=== PATIENT | female | born 1995 | race Caucasian/White ===

== ENCOUNTER → 2016-11-06 22:25 | Observation (INO) ==
--- NOTE | 2016-11-06 17:28 | OB/GYN History & Physical ---
Date of Encounter: 11/06/16 Time of Encounter: 17:15 Assessment and Plan (1) Tachycardia Current visit: No Status: Acute - 1 L of LR fluid bolus. -EKG -CBC CMP History of Present Illness HPI: Ms. Landin is a 20 year old female , at 34 weeks and 2 days, who has a gestational consultation of cholestasis. She was being seen at her OBs office and sent into the labor and delivery for evaluation due to near syncopal episode and hypotension. Patient states that she has had several episodes throughout this where she feels like her heart is racing and that she is going to pass out. She has had 2 episodes of this today. She states she feels like she is going to pass out at this time. She is hypotensive currently at 89 systolic. She states she has been worked up by cardiology including a Holter monitor with no events noted. She states she did not have any feelings like her heart was racing or feelings like she was going to pass out while she is wearing the monitor. She does complain of palpitations feelings of syncope and her vision going white during these events. Past Med Surg Social Fam HX - Past Medical History Medical history: DVT Psychiatric history: no psych history - Social History Smoking Status: Never smoker Smokeless Tobacco Status: No Alcohol use: none Drug use: none - Family History Maternal Grandfather Adopted: No Family Member Ethnicity: Non- Living Status: Still Living Hx Family Cardiac Disorders: Yes (CHF, a-fib, pacemaker, enlarged heart) Hx Family Respiratory Disorders: Yes (COPD) Hx Family Cancer: No Hx Family GI Disorders: No Hx Family Endocrine Disorder: No Hx Family Neuromuscular Disorders: No Hx Family Neurologic Disorders: No Hx Family HEENT Disorders: No Hx Family Autoimmune Disorders: No Obstetrical History - Pregnancies : 1 Para: 0 - History/Complications History/Complications: Cholestasis. Increased liver enzymes. Episodes of tachycardia and near syncope. Medications and Allergies Gummies 08/31/16 [History] Terconazole [Terazol 7] 45 gm VG DAILY #7 cream.appl 08/31/16 [Rx] Nitrofurantoin (BID) [Macrobid] 100 mg PO BID #10 capsule 09/16/16 [Rx] Allergies promethazine [From Phenergan] Allergy (Verified 09/16/16 08:27) Hallucinating Review of System OB All systems PM: reviewed and no additional remarkable complaints except as stated - Constitutional Constitutional ROS IM: other (Feeling like she is going to pass out. Vision going white during these times.), no anorexia, no chills, no fatigue, no fever(s ), no lethargy, no weakness, no weight gain, no weight loss - Nose, mouth, and throat Nose, mouth and throat: abnormal hearing (During the events of her heart racing. ), dizziness (She describes as feeling like she is going to pass out. Not the world spinning.), no epistaxis, no headache(s), no hoarseness, no nasal congestion, no neck pain, no sinus pressure, no sore throat, no throat swelling , no tongue swelling, no vertigo - Cardiovascular Cardiovascular: diaphoresis (During the event that she feels like she is going to pass out), lightheadedness (When her heart is racing), palpitations, rapid heart rate, no chest pain, no chest pain at rest, no chest pain with activity, no dyspnea, no dyspnea on exertion, no edema, no pedal edema, no syncope - Respiratory Respiratory: no cough, no dyspnea, no hemoptysis, no dyspnea on exertion, no wheezing, no chest congestion, no pain with cough - Gastrointestinal Gastrointestinal: no abdominal pain, no change in bowel habits, no constipation , no cramping, no diarrhea, no hematemesis, no hematochezia, no loose stools, no melena, no nausea, no vomiting - Genitourinary Genitourinary: amenorrhea, no breast pain, no breast skin changes, no change in urinary stream, no difficulty voiding, no hot flashes, no light periods, no pelvic pain, no post void dribbling, no urinary frequency, no urinary hesitancy , no urinary incontinence - Menstruation Menstruation: amenorrhea - Integumentary Integumentary: no rash - Neurological Nerological: dizziness, no confusion, no memory loss, no numbness, no paresthesias, no syncope Exam - Constitutional Constitutional: well developed, well nourished, mild distress - HEENT HEENT: Pallor, EOMI, PERRL, Normocephaly, Mucus Membranes Moist - Neck Neck exam: full ROM, normal inspection, supple, trachea midline - Lungs Respiratory exam: CTAB - Cardiovascular Cardiovascular exam: tachycardia - Abdomen Abdomen: Present: bowel sounds normal, gravid, non tender - Extremities Extremities exam: full ROM, normal capillary refill, normal inspection, radial pulses palpable and symetrical Deep Tendon Reflex Grade: 2+ Normal Results All other labs normal. - VTE Reasons for not Prescribing Prophylaxis: Treatment not Indicated - Low risk for VTE
[2016-11-06] MEDS: Ringers Solution, Lactated 1,000 ML IVC STA ×2 (17:46→18:33)
[2016-11-06 18:05] LABS: Alanine Aminotransferase 194 Units/L (0-55); Albumin 2.4 g/dL (3.5-5.0); Albumin/Globulin Ratio 0.6 (1.1-2.2); Alkaline Phosphatase 135 Units/L (38-126); Aspartate Amino Transferase 82 Units/L (5-34); BUN/Creatinine Ratio 10 (6-26); Bilirubin,Total 0.9 mg/dL (0.2-1.2); Blood Urea Nitrogen 7 mg/dL (7-20); Carbon Dioxide 16 mEq/L (19-29); Chloride 109 mEq/L (98-109); Globulin 4.2 g/dL (2.4-3.5); Glucose 91 mg/dL (70-99); Osmolality,Calculated 284 (280-300); Potassium 3.8 mEq/L (3.5-4.5); Sodium 138 mEq/L (136-145); Total Protein 6.6 g/dL (6.0-8.3); eGFR For African Americans > 60 (> 60); eGFR For Non-African Americans > 60 (> 60)
[2016-11-06 18:46] LABS: Basophils % 0.2 %; Eosinophils % 0.3 %; Hematocrit 31.9 % (35.3-44.9); Hemoglobin 10.8 g/dL (11.5-15.4); Immature Granulocytes % 0.5 % (0-4); Lymphocytes # 1.6 K/mcL (0.6-4.6); Lymphocytes % 13.9 %; Mean Corpuscular HGB Conc 33.9 g/dL (31.6-35.5); Mean Corpuscular Hemoglobin 29.8 pg (28.0-33.3); Mean Corpuscular Volume 87.9 fL (83.0-100.0); Mean Platelet Volume 9.9 fL (9.4-12.4); Monocytes # 0.5 K/mcL (0.0-1.3); Monocytes % 4.8 %; Neutrophils # 9.1 K/mcL (1.6-8.9); Platelet Count 361 K/mcL (140-400); Red Blood Count 3.63 M/mcL (3.82-4.97); Red Cell Distribution Width 12.4 % (11.5-14.5); Segmented Neutrophils % 80.3 %
--- NOTE | 2016-11-06 18:56 | Internal Med History&Physical ---
Date of Encounter: 11/06/16 Time of Encounter: 18:15 Internal Medicine - H&P: HPI Chief complaint: hypotension, tachycardia Admitted From: Home Plans for Post Hospital Care: Home History of present illness: Ms. Landin is a 20 year old female Past Med Surg Social Fam HX - Past Medical History Medical history: DVT Psychiatric history: no psych history - Social History Smoking Status: Never smoker Smokeless Tobacco Status: No Alcohol use: none Drug use: none - Family History Maternal Grandfather Adopted: No Family Member Ethnicity: Non- Living Status: Still Living Hx Family Cardiac Disorders: Yes Hx Family Respiratory Disorders: Yes (COPD) Hx Family Cancer: No Hx Family GI Disorders: No Hx Family Endocrine Disorder: No Hx Family Neuromuscular Disorders: No Hx Family Neurologic Disorders: No Hx Family HEENT Disorders: No Hx Family Autoimmune Disorders: No Internal Medicine - H&P: Meds Gummies 08/31/16 [History] Ursodiol [Ursodiol] 300 mg PO TID 11/06/16 [History] Allergies promethazine [From Phenergan] Allergy (Verified 09/16/16 08:27) Hallucinating All Systems PM: A 10-system review of systems was performed and is negative for pertinent findings except as documented above in the HPI. Internal Med - H&P Results - Labs CBC & Chem 7: 11/06/16 18:36 11/06/16 17:39 Labs: Short CBC 11/06/16 Range/Units 18:36 WBC 11.3 H (4.3-11.1) K/mcL Hgb 10.8 L (11.5-15.4) g/dL Hct 31.9 L (35.3-44.9) % Plt Count 361 (140-400) K/mcL Neutrophils # 9.1 H (1.6-8.9) K/mcL BMP 11/06/16 17:39 Sodium 138 Potassium 3.8 Chloride 109 Carbon Dioxide 16 L BUN 7 Creatinine 0.67 Glucose 91 Calcium 9.0 Liver Function 11/06/16 Range/Units 17:39 Total Bilirubin 0.9 (0.2-1.2) mg/dL AST 82 H (5-34) Units/L ALT 194 H (0-55) Units/L Alkaline Phosphatase 135 H (38-126) Units/L Albumin 2.4 L (3.5-5.0) g/dL - VTE Reasons for not Prescribing Prophylaxis: Treatment not Indicated - Low risk for VTE
--- NOTE | 2016-11-06 19:01 | Internal Medicine Consult Note ---
<Ger,Amy Chris - Last Filed: 11/06/16 18:56> Date of Encounter: 11/06/16 Time of Encounter: 18:15 Internal Medicine - CN: HPI - Data of Consult Consult date: 11/06/16 Requesting Physician: Lew Haider MD - Consult Narrative History of present illness: Ms. Landin is a 20 year old female , 32 weeks/4 days with 2 month history of presyncope.Pt was at OB office today during episode and was sent to L & D for evaluation. Hypotensive on arrival, 89/46. Pressure 118/70s after 1 liter LR. Pt alert, awake, denies cp, but does report dizziness and "cold sweats ". - Constitutional Constitutional: no chills, no fever(s), no weakness - EENT Eyes: no change in vision - Cardiovascular Cardiovascular ROS IM: diaphoresis, edema, palpitations, no chest pain, no syncope - Respiratory Respiratory: no cough, no dyspnea, no wheezing, no chest congestion - Musculoskeletal Musculoskeletal ROS IM: muscle weakness Additional comments: Pt reports intermittent arm heaviness/weakness with post neck pain x 2 mos. Past Med Surg Social Fam HX - Past Medical History Medical history: DVT Psychiatric history: no psych history - Social History Smoking Status: Never smoker Smokeless Tobacco Status: No Alcohol use: none Drug use: none - Family History Maternal Grandfather Adopted: No Family Member Ethnicity: Non- Living Status: Still Living Hx Family Cardiac Disorders: Yes Hx Family Respiratory Disorders: Yes (COPD) Hx Family Cancer: No Hx Family GI Disorders: No Hx Family Endocrine Disorder: No Hx Family Neuromuscular Disorders: No Hx Family Neurologic Disorders: No Hx Family HEENT Disorders: No Hx Family Autoimmune Disorders: No Internal Medicine - CN: Meds Gummies 2 tab PO QPM 08/31/16 [History] Ursodiol [Ursodiol] 300 mg PO TID 11/06/16 [History] Allergies promethazine [From Phenergan] Allergy (Verified 09/16/16 08:27) Hallucinating Internal Medicine - CN: Exam - Constitutional General appearance IM: Present: A&O X 3, pleasant, no acute distress - ENT ENT exam: Present: mucous membranes moist - Neck Neck exam general surgery: Absent: tenderness, nuchal rigidity - Respiratory Respiratory exam: Present: CTAB. Absent: chest wall tenderness, decreased breath sounds, respiratory distress, rhonchi, wheezes - Cardiovascular Cardiovascular exam IM: Present: RRR, +S1, +S2. Absent: diastolic murmur, JVD, systolic murmur - Extremities Exam Extremities exam IM: Present: full ROM, normal capillary refill, normal inspection, warm. Absent: calf tenderness, tenderness Additional comments: Garrett pedal pulses +2. No pedal or pretibial edema. - Neurological Exam Neurological exam: Present: alert, oriented X3 - Skin Skin exam IM: Present: dry, normal color, warm Internal Medicine - CN: Reslt - Labs CBC & Chem 7: 11/06/16 18:36 11/06/16 17:39 Labs: Short CBC 11/06/16 Range/Units 18:36 WBC 11.3 H (4.3-11.1) K/mcL Hgb 10.8 L (11.5-15.4) g/dL Hct 31.9 L (35.3-44.9) % Plt Count 361 (140-400) K/mcL Neutrophils # 9.1 H (1.6-8.9) K/mcL BMP 11/06/16 17:39 Sodium 138 Potassium 3.8 Chloride 109 Carbon Dioxide 16 L BUN 7 Creatinine 0.67 Glucose 91 Calcium 9.0 Liver Function 11/06/16 Range/Units 17:39 Total Bilirubin 0.9 (0.2-1.2) mg/dL AST 82 H (5-34) Units/L ALT 194 H (0-55) Units/L Alkaline Phosphatase 135 H (38-126) Units/L Albumin 2.4 L (3.5-5.0) g/dL - EKG Data -: EKG Interpreted by Myself EKG shows normal: sinus rhythm Rate: normal - EKG Data Interpretation IM: normal EKG - Assessment and Plan (1) Pre-syncope Current Visit: Yes Status: Acute Assessment and plan: Pt in L & D room, monitoring. Pts pulse remains wNL during exam. Orthostatic vs done, neg for changes and pt not dizzy with position change. Pt received 2L LR per OB orders and states that she was feeling better. Presyncope is most likely from volume and demand changes during , but further testing will be done to determine if there is another cause. EKG done in OB, Ventricular rate 99, T wave inversion in lead III, No ST changes LR at 100ml/hr Blood cultures, urine cultures, CBC, Chemistry, BNP, UA/culture Monitor labs (2) Tachycardia Current Visit: Yes Status: Acute Assessment and plan: Plan as above Consult Discharge Plan - Plan Referrals: Rajni Mcgraw SENIOR [employer]2EE DEVELOPER [Primary Care Provider] - <Cosme Ca - Last Filed: 11/06/16 21:41> Date of Encounter: 11/06/16 - Attending Attestation I have independently seen and examined this patient and discussed plan of care with patient and family at bedside 20 Y/O Primigravida, admitted for management of presyncope Medicine is consulted for evaluation for presyncope, tachycardia and hypotension Patient endorsed periods of sudden onset dizziness, self -resolving since early in her 3rd trimester. She has had tachycardia throughout this that has been worked up by cardiology. Holter monitoring said to be sinus tachycardia and ECHO was unremarkable. This has also been complicated by cholestasis She has a hx of upper extremity DVT but denies current calf pain SOB, Chest pain , abdominal pain or symptoms Physical Exam is unremarkable Orthostatic vitals were normal, however patient had already received IVF at time of visit. Labs were ordered including UA and urine culture, chem, BNP, troponins, LFT, CBC. Apart from a UTI, Labs are essentially unremarkable, her LFTs have improved. [employer]ACH[employer] T[employer]ER WNL, Troponin WNL. EKG done at bedside revealed NSR, TWI in lead III (same as in previous EKG) Assessment/plan: Presyncope from hypotension which is most likely secondary to physiologic changes of . Patient does have a UTI but has no fever or leukocytosis or leukopenia to meet a criteria for sepsis. Recommend to give IV antibiotics to treat UTI, encourage liberal fluid intake and patient may be discharged if her blood pressure remains normal after IVF has been discontinued. Elevated D-dimers are normal in , I do not envisage that patient has a PE, if there is suspicion for PE, you may obtain a doppler of lower extremities , and manage appropriately Thank you for your consult. 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 Internal Medicine - CN: HPI - Data of Consult Requesting Physician: Lew Haider MD - Consult Narrative History of present illness: Ms. Landin is a 20 year old female Internal Medicine - CN: Exam - Constitutional Vitals: Temp Pulse Resp BP Pulse Ox 97.6 F 98 20 126/65 99 11/06/16 17:50 11/06/16 19:18 11/06/16 17:50 11/06/16 19:18 11/06/16 19:18 Internal Medicine - CN: Reslt - Labs CBC & Chem 7: 11/06/16 18:36 11/06/16 17:39 Labs: Short CBC 11/06/16 Range/Units 18:36 WBC 11.3 H (4.3-11.1) K/mcL Hgb 10.8 L (11.5-15.4) g/dL Hct 31.9 L (35.3-44.9) % Plt Count 361 (140-400) K/mcL Neutrophils # 9.1 H (1.6-8.9) K/mcL BMP 11/06/16 17:39 Sodium 138 Potassium 3.8 Chloride 109 Carbon Dioxide 16 L BUN 7 Creatinine 0.67 Glucose 91 Calcium 9.0 Cardiac Enzymes 11/06/16 Range/Units 18:36 Troponin I 0.01 (0-0.03) ng/mL Liver Function 11/06/16 Range/Units 17:39 Total Bilirubin 0.9 (0.2-1.2) mg/dL AST 82 H (5-34) Units/L ALT 194 H (0-55) Units/L Alkaline Phosphatase 135 H (38-126) Units/L Albumin 2.4 L (3.5-5.0) g/dL Urine 11/06/16 Range/Units 18:58 Urine Color Dark Yellow (Yellow) Urine Clarity Cloudy A (Clear) Urine pH 7.5 (5.0-8.0) pH Units Ur Specific [place] 1.022 (1.010-1.025) Urine Protein 30 H (Neg-Trace) mg/dL Urine Glucose (UA) Normal (Normal) mg/dL - ABG Interpretation ABG results: PT/INR, D-dimer D-Dimer 1299 ng/mLFEU (0-500) H 11/06/16 18:36
[2016-11-06 19:52] LABS: Bilirubin,Urine Small (Negative); Blood,Urine Negative (Negative); Clarity,Urine Cloudy (Clear); Color,Urine Dark Yellow (Yellow); Glucose,Urine (UA) Normal (Normal); Ketones,Urine Trace mg/dL (Negative); Leukocyte Esterase,Urine Small (Negative); Nitrite,Urine Negative (Negative); PH,Urine 7.5 pH Units (5.0-8.0); Protein,Urine 30 mg/dL (Neg-Trace); Specific Gravity,Urine 1.022 (1.010-1.025); Urobilinogen,Urine Normal (Normal)
[2016-11-06 19:56] LABS: Bacteria,Urine Moderate per hpf (None-Few); Hyaline Casts,Urine Moderate per lpf (None-Few); Squamous Epithelial Cell,Urine Many per lpf (None-Few); WBC,Urine 50-100 per hpf (0-3)
--- NOTE | 2016-11-06 20:26 | Event Note ---
Date of Encounter: 11/06/16 Time of Encounter: 19:[address] Haider. At this time patient states that she is not having any symptoms and that she has no complaints. She reports that she has had 2 episodes of tachycardia, dizziness and feelings of near-syncope since she arrived here today. Internal medicine was consulted. Will continue to monitor patient and baby while undergoing workup.
[2016-11-06 20:42] VITALS: BP 133/79
--- NOTE | 2016-11-06 21:42 | Event Note ---
<Airam Ledbetter - Last Filed: 11/06/16 22:28> Date of Encounter: 11/06/16 Time of Encounter: 21:39 Patient's lab showed elevated AST/ALT/alk phos - all expected with patient's history of cholecystasis. She had a WBC of 11 - appropriate in . Hemoglobin was slightly on the low side but not severe. D-dimer elevated as expected in . Patient reports that she feels well and is not currently having an "episode." Baby is being monitored and has showed good movement and heart tones. As such, do not believe that this is an obstetric problem at this time. Appreciate the hospitalist recommendations however do not feel that the patient requires further stay here with us as they are not planning further testing and she is feeling better. Patient requested further conversation with the hospitalist who was unable to come down and talk with them. Patient's MFM physician at [facility] called and accepted transfer of the patient to [facility] for further evaluation. <Lew Haider - Last Filed: 11/07/16 07:23> Date of Encounter: 11/07/16 According to nursing staff ; Hospitalist refused to come down to discuss patients' request to be placed on telemitry bed . I spoke with Dr. Villar who agreed to accept transfer of this patient for further evaluation and telemetry. Lew DUNLAPOG l
--- NOTE | 2016-11-06 22:24 | Discharge Summary ---
Date of Encounter: 11/06/16 Time of Encounter: 22:23 - Discharge Diagnosis (1) Pre-syncope Priority: Primary Status: Acute Comments: Patient presented with pre-syncope, tachycardia, and dizziness. Labs were all reassuring - largely within normal limits. Elevated liver function tests as expected, actually improving. Hospitalist recommended hydration but no further work-up. Baby remains good with reassuring movement and heart tones. Patient discussed with her M doctor at [facility] who accepted the patient for transfer. She was given the option of transfer by ambulance however decided on private vehicle. (2) 34 weeks gestation of Priority: Secondary Status: Acute (3) Cholestasis during Priority: Secondary Status: Acute Comments: Liver enzymes actually improving compared to previous. (4) Tachycardia Priority: Secondary Status: Acute Comments: Improved with fluids. On exam, patient was normal sinus rhythm. EKG showed normal sinus. - Discharge Medications Home Medications: Gummies 2 tab PO QPM 08/31/16 [History] Ursodiol [Ursodiol] 300 mg PO TID 11/06/16 [History] Allergies/Adverse Reactions: Allergies promethazine [From Phenergan] Allergy (Verified 09/16/16 08:27) Hallucinating Data Procedures and tests throughout hospitalization: Laboratory Tests 11/06/16 11/06/16 11/06/16 17:39 17:39 18:04 WBC RBC Hgb Hct MCV MCH MCHC RDW Plt Count MPV Immature Gran % Seg Neutrophils % Lymphocytes % Monocytes % Eosinophils % Basophils % Neutrophils # Lymphocytes # Monocytes # Eosinophils # Basophils # D-Dimer Sodium 138 Potassium 3.8 Chloride 109 Carbon Dioxide 16 L BUN 7 Creatinine 0.67 Est GFR ( Amer) > 60 Est GFR (Non-Af Amer) > 60 BUN/Creatinine Ratio 10 Glucose 91 POC Glucose 94 H Calculated Osmolality 284 Calcium 9.0 Total Bilirubin 0.9 AST 82 H ALT 194 H Alkaline Phosphatase 135 H Troponin I B-Natriuretic Peptide Serum Total Protein 6.6 Albumin 2.4 L Globulin 4.2 H Albumin/Globulin Ratio 0.6 L Urine Color Urine Clarity Urine pH Ur Specific [place] Urine Protein Urine Glucose (UA) Urine Ketones Urine Blood Urine Nitrite Urine Bilirubin Urine Urobilinogen Ur Leukocyte Esterase Urine Microscopic RBC Urine Microscopic WBC Ur Squamous Epith Cells Urine Bacteria Hyaline Casts Ur Culture Indicated? Specimen Rejected MCV Delta 11/06/16 11/06/16 11/06/16 18:36 18:36 18:36 WBC 11.3 H RBC 3.63 L Hgb 10.8 L Hct 31.9 L MCV 87.9 MCH 29.8 MCHC 33.9 RDW 12.4 Plt Count 361 MPV 9.9 Immature Gran % 0.5 Seg Neutrophils % 80.3 Lymphocytes % 13.9 Monocytes % 4.8 Eosinophils % 0.3 Basophils % 0.2 Neutrophils # 9.1 H Lymphocytes # 1.6 Monocytes # 0.5 Eosinophils # 0.0 Basophils # 0.0 D-Dimer 1299 H Sodium Potassium Chloride Carbon Dioxide BUN Creatinine Est GFR ( Amer) Est GFR (Non-Af Amer) BUN/Creatinine Ratio Glucose POC Glucose Calculated Osmolality Calcium Total Bilirubin AST ALT Alkaline Phosphatase Troponin I B-Natriuretic Peptide 15 Serum Total Protein Albumin Globulin Albumin/Globulin Ratio Urine Color Urine Clarity Urine pH Ur Specific [place] Urine Protein Urine Glucose (UA) Urine Ketones Urine Blood Urine Nitrite Urine Bilirubin Urine Urobilinogen Ur Leukocyte Esterase Urine Microscopic RBC Urine Microscopic WBC Ur Squamous Epith Cells Urine Bacteria Hyaline Casts Ur Culture Indicated? Specimen Rejected 11/06/16 11/06/16 18:36 18:58 WBC RBC Hgb Hct MCV MCH MCHC RDW Plt Count MPV Immature Gran % Seg Neutrophils % Lymphocytes % Monocytes % Eosinophils % Basophils % Neutrophils # Lymphocytes # Monocytes # Eosinophils # Basophils # D-Dimer Sodium Potassium Chloride Carbon Dioxide BUN Creatinine Est GFR ( Amer) Est GFR (Non-Af Amer) BUN/Creatinine Ratio Glucose POC Glucose Calculated Osmolality Calcium Total Bilirubin AST ALT Alkaline Phosphatase Troponin I 0.01 B-Natriuretic Peptide Serum Total Protein Albumin Globulin Albumin/Globulin Ratio Urine Color Dark Yellow Urine Clarity Cloudy A Urine pH 7.5 Ur Specific [place] 1.022 Urine Protein 30 H Urine Glucose (UA) Normal Urine Ketones Trace H Urine Blood Negative Urine Nitrite Negative Urine Bilirubin Small H Urine Urobilinogen Normal Ur Leukocyte Esterase Small H Urine Microscopic RBC 5-15 H Urine Microscopic WBC 50-100 H Ur Squamous Epith Cells Many H Urine Bacteria Moderate H Hyaline Casts Moderate H Ur Culture Indicated? YES A Specimen Rejected Labs on day of discharge: Labs from last 24 hours 11/06/16 11/06/16 11/06/16 18:58 18:36 18:36 WBC RBC Hgb Hct MCV MCH MCHC RDW Plt Count MPV Immature Gran % Seg Neutrophils % Lymphocytes % Monocytes % Eosinophils % Basophils % Neutrophils # Lymphocytes # Monocytes # Eosinophils # Basophils # D-Dimer 1299 H Sodium Potassium Chloride Carbon Dioxide BUN Creatinine Est GFR ( Amer) Est GFR (Non-Af Amer) BUN/Creatinine Ratio Glucose POC Glucose Calculated Osmolality Calcium Total Bilirubin AST ALT Alkaline Phosphatase Troponin I 0.01 B-Natriuretic Peptide Serum Total Protein Albumin Globulin Albumin/Globulin Ratio Urine Color Dark Yellow Urine Clarity Cloudy A Urine pH 7.5 Ur Specific [place] 1.022 Urine Protein 30 H Urine Glucose (UA) Normal Urine Ketones Trace H Urine Blood Negative Urine Nitrite Negative Urine Bilirubin Small H Urine Urobilinogen Normal Ur Leukocyte Esterase Small H Urine Microscopic RBC 5-15 H Urine Microscopic WBC 50-100 H Ur Squamous Epith Cells Many H Urine Bacteria Moderate H Hyaline Casts Moderate H Ur Culture Indicated? YES A Specimen Rejected 11/06/16 11/06/16 11/06/16 18:36 18:36 18:04 WBC 11.3 H RBC 3.63 L Hgb 10.8 L Hct 31.9 L MCV 87.9 MCH 29.8 MCHC 33.9 RDW 12.4 Plt Count 361 MPV 9.9 Immature Gran % 0.5 Seg Neutrophils % 80.3 Lymphocytes % 13.9 Monocytes % 4.8 Eosinophils % 0.3 Basophils % 0.2 Neutrophils # 9.1 H Lymphocytes # 1.6 Monocytes # 0.5 Eosinophils # 0.0 Basophils # 0.0 D-Dimer Sodium Potassium Chloride Carbon Dioxide BUN Creatinine Est GFR ( Amer) Est GFR (Non-Af Amer) BUN/Creatinine Ratio Glucose POC Glucose 94 H Calculated Osmolality Calcium Total Bilirubin AST ALT Alkaline Phosphatase Troponin I B-Natriuretic Peptide 15 Serum Total Protein Albumin Globulin Albumin/Globulin Ratio Urine Color Urine Clarity Urine pH Ur Specific [place] Urine Protein Urine Glucose (UA) Urine Ketones Urine Blood Urine Nitrite Urine Bilirubin Urine Urobilinogen Ur Leukocyte Esterase Urine Microscopic RBC Urine Microscopic WBC Ur Squamous Epith Cells Urine Bacteria Hyaline Casts Ur Culture Indicated? Specimen Rejected 11/06/16 11/06/16 17:39 17:39 WBC RBC Hgb Hct MCV MCH MCHC RDW Plt Count MPV Immature Gran % Seg Neutrophils % Lymphocytes % Monocytes % Eosinophils % Basophils % Neutrophils # Lymphocytes # Monocytes # Eosinophils # Basophils # D-Dimer Sodium 138 Potassium 3.8 Chloride 109 Carbon Dioxide 16 L BUN 7 Creatinine 0.67 Est GFR ( Amer) > 60 Est GFR (Non-Af Amer) > 60 BUN/Creatinine Ratio 10 Glucose 91 POC Glucose Calculated Osmolality 284 Calcium 9.0 Total Bilirubin 0.9 AST 82 H ALT 194 H Alkaline Phosphatase 135 H Troponin I B-Natriuretic Peptide Serum Total Protein 6.6 Albumin 2.4 L Globulin 4.2 H Albumin/Globulin Ratio 0.6 L Urine Color Urine Clarity Urine pH Ur Specific [place] Urine Protein Urine Glucose (UA) Urine Ketones Urine Blood Urine Nitrite Urine Bilirubin Urine Urobilinogen Ur Leukocyte Esterase Urine Microscopic RBC Urine Microscopic WBC Ur Squamous Epith Cells Urine Bacteria Hyaline Casts Ur Culture Indicated? Specimen Rejected MCV Delta - Imaging and Cardiology Other Images Status: image reviewed by me Additional comments: EKG showed normal sinus rhythm with some nonspecific T wave abnormalities. No ST segment elevation. Date of admission: 11/06/16 16:50 Primary care physician: Rajni Mcgraw CNP Consults: 11/06/16 17:33 Consult to Hospitalist [CONS] Stat Consulting Provider: Hospitalist [place] Reason for Consult: tachycardia Call Completed: No Discharging clinician: Lew Haider Anticipated date of discharge: 11/06/16 - Patient Status Disposition: Transfer Critical Access Hosp Condition: Good Functional capacity at discharge: independent ambulation Overall status at discharge: patient is back to baseline - Discharge Instructions Follow Up With: Rajni Mcgraw CNP [Primary Care Provider] - Additional Instructions: LABOR AND DELIVERY DISCHARGE INSTRUCTIONS Signs and Symptoms to be Reported to your Doctor Immediately: * Sudden gush, continuous or intermittent lead of fluid from vagina (note the time of gush and color of fluid) * Onset of bright red vaginal bleeding with or without pain (if you had a vaginal exam during this visit you may notice some dark red spotting. This is normal.) * Lower abdominal cramping or backache that is premenstrual-like feeling. * More than 6 contractions in one hour. * Burning during urination, having to urinate more frequently or pain in your mid-back. * A change in the baby's activity. This could be an increase or decrease in activity. * Severe headache which does not go away with tylenol. * Sudden swelling in the face, hands, arms and/or legs. * Upper abdominal pain - sometimes associated with heartburn or nausea and is not relieved by Maalox, Mylanta or Tums. * Dizziness or blurred vision or visual disturbances (seeing stars/lights). * Kick Counts One hour after a meal, lay down on one side in a quiet place. Count the number of odilia the baby moves during an hour. If less than 6 movements, notify your physician. Diet: *Force fluids - 8-10 tall glasses of fluid per day. May include popsicles and jello. *Limit caffeine - this includes chocolate, coffee, tea, any soft drink containing such as all jose m, Alexis Yellow and Mountain Dew - Diet and Activity Activity: resume usual activities as tolerated Diet: advance to your usual diet Hospital Course ELECT[employer]IC [employer]ER Time Attestation: Total time spent providing and/or coordinating discharge services: Exam - Constitutional Vitals: Temp Pulse Resp BP Pulse Ox 97.6 F 98 20 126/65 99 11/06/16 17:50 11/06/16 19:18 11/06/16 17:50 11/06/16 19:18 11/06/16 19:18 General appearance IM: A&O X 3, no acute distress - Respiratory Respiratory exam: Present: CTAB. Absent: decreased breath sounds, wheezes - Cardiovascular Cardiovascular exam IM: Present: tachycardia - GI/Abdominal GI/Abdominal exam IM: soft - Extremities Exam Extremities exam IM: Present: normal capillary refill, normal inspection, warm. Absent: pedal edema - Neurological Exam Neurological exam: alert, CN II-XII intact, oriented X3 - VTE Reasons for not Prescribing Prophylaxis: Treatment not Indicated - Low risk for VTE
[~2016-11-06 22:25] MED LIST: Ringers Solution, Lactated 1,000 ML IVC SCH; Ringers Solution, Lactated 1,000 ML ONE
--- NOTE | 2016-11-08 19:32 | Electrocardiograph Report ---
[facility] Test Date: 2016-11-06 Pat Name: Leoncio Landin Department: 101 Room: 1N12 Gender: F Vehicle Sales Professional: : 1995 Requested By: Sherrie Granger Order Number: [id number] Reading MD: Moises Tuttle DO Measurements Intervals [place] Rate: 99 P: 22 [place]: 164 QRS: 50 QRSD: 85 T: 8 QT: 326 QTc: 382 Interpretive Statements Sinus rhythm Nonspecific ST-T changes Electronically Signed On 11-08-16 19:31:55 EST by Moises Tuttle DO
== END | disposition short-term general hospital (02) ==
LOC: 1NENULAB
PROVIDERS: ADMIT Obstetrics & Gynecology; ATTEND Obstetrics & Gynecology

== ENCOUNTER → 2016-11-15 01:03 | Observation (INO) ==
--- NOTE | 2016-11-23 18:35 | OB/GYN Progress Note ---
Date of Encounter: 11/14/16 Time of Encounter: 23:30 - Assessment and Plan (1) 35 weeks gestation of Status: Acute Pt with decreased movement at home, baby is now active. (2) Cholestasis during Status: Acute Subjective - Subjective Principal diagnosis: decreased movement Interval history: 20 yo at 35w4d presents with c/o decreased movement. On arrival baby now active. Objective - Exam FHR: category 1 Auscultation: bilateral: normal Abdomen: Present: gravid
== END | disposition home or self-care (01) ==
LOC: 1NENULAB
PROVIDERS: ADMIT Obstetrics & Gynecology; ATTEND Obstetrics & Gynecology

== ENCOUNTER 2016-11-26 22:31 | Inpatient (IN) ==
[2016-11-26] MEDS ORDERED: 0.9 % Sodium Chloride 1,000 ML IVC ONE (23:07)
--- NOTE | 2016-11-26 23:14 | Emergency Department Note ---
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 The patient reports she had to be induced at 36 weeks, she describes cholestasis and persistent tachycardia during her . The patient reports she had a recent urinary tract infection and just finished antibiotics. She describes left flank pain which has been getting worse. The patient denies any heavy vaginal bleeding and reports that her discharge is decreasing. The patient denies any chest pain or shortness of breath or cough no runny nose here pain or sore throat. There is no history of leg pain or coughing up blood she describes some edema in the lower extremities. There is no history of rash or breast redness swelling or pain. There is no history of headache neck stiffness convulsion or confusion. There is been no trouble walking talking hearing seeing or speaking, there is no history of passing out. The pain in the left flank is not associated with movement. There is no history of bowel or bladder dysfunction. No weakness or numbness and the legs. The patient had a remote upper extremity DVT but is not anticoagulated currently. Pain Scale: 8 - Related Data Home Medications Medication Instructions Recorded Confirmed Gummies 2 tab PO QPM 08/31/16 11/14/16 Ursodiol [Ursodiol] 300 mg PO TID 11/06/16 11/14/16 Cetirizine HCl [Zyrtec] 10 mg PO DAILY PRN 11/14/16 11/14/16 Ferrous Sulfate [Iron] 325 mg PO BID 11/14/16 11/14/16 Nitrofurantoin (BID) [Macrobid] 100 mg PO BID 11/14/16 11/14/16 Allergies Allergy/AdvReac Type Severity Reaction Status Date / Time promethazine [From Phenergan] Allergy Hallucinati Verified 11/26/16 22:35 ng All systems ED: reviewed and negative except as stated. Past Medical History - Past Medical History Source: patient Medical history: Reports: DVT Psychiatric history: Reports: no psych history ENGINEERING SYSTEMS ANALYST history: Reports: no ENGINEERING SYSTEMS ANALYST history - Social History Smoking Status: Never smoker Smokeless Tobacco Status: No Alcohol use: Reports: none Drug use: Reports: none Physical Exam - General Limitations: no limitations General appearance: alert, in no apparent distress - Head Head exam: atraumatic, normocephalic, normal inspection - Eye Eye exam: Present: normal appearance, PERRL, EOMI. Absent: scleral icterus, conjunctival injection, miosis, mydriasis - ENT ENT exam: normal exam, normal oropharynx, mucous membranes moist, TM's normal bilaterally, normal external ear exam - Neck Neck exam: Present: normal inspection, full ROM, trachea midline. Absent: meningismus - Chest Chest inspection: Present: symmetric chest wall rise. Absent: tenderness - Respiratory Respiratory exam: Present: normal lung sounds bilaterally. Absent: respiratory distress - Cardiovascular Cardiovascular exam: Present: normal rhythm, tachycardia - Abdominal Exam Abdominal exam: Present: soft, Non-Tender, normal bowel sounds. Absent: tenderness, distention, guarding, rebound, rigidity, trauma, Pierce's sign, Rovsing's sign, tenderness at McBurney's Point, pulsatile mass - Extremities Exam Extremities exam: Present: normal inspection, full ROM, normal capillary refill. Absent: tenderness, pedal edema, joint swelling, calf tenderness - Expanded Lower Extremity Exam Neurovascular/Tendon exam: Absent: motor deficit, sensory deficit, tendon deficit, extremity cold to touch - Back Exam Back exam: Present: normal inspection, full ROM, CVA tenderness (L). Absent: tenderness, CVA tenderness (R), vertebral tenderness - Neurological Exam Neurological exam: Present: alert, oriented X3, CN II-XII intact. Absent: motor sensory deficit - Psychiatric Psychiatric exam: Present: normal affect, normal mood - Skin Skin exam: Present: warm, dry, intact, normal color. Absent: rash, cyanosis, diaphoresis, erythema, pallor, mottled Course Vital Signs Temperature 100.6 F H 11/26/16 22:35 Pulse Rate 133 11/26/16 22:35 Respiratory Rate 20 11/26/16 22:35 Blood Pressure 142/89 11/26/16 22:35 O2 Sat by Pulse Oximetry 97 11/26/16 22:35 Temperature 99.7 F H 11/27/16 00:17 Pulse Rate 106 11/27/16 00:17 Respiratory Rate 20 11/27/16 00:17 Blood Pressure 122/65 11/27/16 00:17 O2 Sat by Pulse Oximetry 100 11/27/16 00:17 Oxygen Delivery Oxygen Delivery Room Air Medical Decision Making - MDM Narrative Medical decision making narrative: The patient is febrile, tachycardic, and has an elevated white count with an apparent source for infection, she meets sepsis criteria. The patient seems to have flank pain and may have an early pyelonephritis. Initial IV fluids were given. Pain control measures and antiemetics were also ordered. Zosyn was ordered initially. The patient seems to have flank pain and an abnormal urinalysis suggestive of a UTI source, however this could be a contaminated specimen and endomyometritis or endometritis could be considered. Discussed the case with the hospitalist who has accepted the patient to their care. The patient is currently stable pending admission. A secondary ENGINEERING SYSTEMS ANALYST consult can also be obtained in house, order has been placed via the computer system and I have asked nursing to ensure the consult has been entered. Lipase and Flu ordered and pending. - Lab Data Lab results reviewed: Yes I reviewed the patient's lab results. Result diagrams: 11/26/16 23:23 11/26/16 23:23 Lab Results 11/26/16 11/26/16 11/26/16 Range/Units 22:25 22:25 23:00 WBC (4.3-11.1) K/mcL RBC (3.82-4.97) M/mcL Hgb (11.5-15.4) g/dL Hct (35.3-44.9) % MCV (83.0-100.0) fL MCH (28.0-33.3) pg MCHC (31.6-35.5) g/dL RDW (11.5-14.5) % Plt Count (140-400) K/mcL MPV (9.4-12.4) fL Immature Gran % (0-4) % Seg Neutrophils % % Lymphocytes % % Monocytes % % Eosinophils % % Basophils % % Neutrophils # (1.6-8.9) K/mcL Lymphocytes # (0.6-4.6) K/mcL Monocytes # (0.0-1.3) K/mcL Eosinophils # (0.0-0.6) K/mcL Basophils # (0.0-0.2) K/mcL Immature Plt Fraction (1.1-6.1) % PT (9.4-12.1) Seconds INR APTT (26.0-36.0) Seconds Sodium (136-145) mEq/L Potassium (3.5-4.5) mEq/L Chloride (98-109) mEq/L Carbon Dioxide (19-29) mEq/L BUN (7-20) mg/dL Creatinine (0.57-1.11) mg/dL Est GFR ( Amer) (> 60) Est GFR (Non-Af Amer) (> 60) BUN/Creatinine Ratio (6-26) Glucose (70-99) mg/dL Calculated Osmolality (280-300) Lactic Acid (0.5-2.2) mmol/L Calcium (8.6-10.8) mg/dL Total Bilirubin (0.2-1.2) mg/dL Direct Bilirubin (0.0-0.5) mg/dL Indirect Bilirubin (0.0-1.2) mg/dL AST (5-34) Units/L ALT (0-55) Units/L Alkaline Phosphatase (38-126) Units/L Troponin I 0.00 (0-0.03) ng/mL C-Reactive Protein (Less than 5) mg/L B-Natriuretic Peptide 113 H (0-100) pg/mL Serum Total Protein (6.0-8.3) g/dL Albumin (3.5-5.0) g/dL Globulin (2.4-3.5) g/dL Albumin/Globulin Ratio (1.1-2.2) Urine Color Yellow (Yellow) Urine Clarity Cloudy A (Clear) Urine pH 6.0 (5.0-8.0) pH Units Ur Specific [place] 1.019 (1.010-1.025) Urine Protein 30 H (Neg-Trace) mg/dL Urine Glucose (UA) Normal (Normal) mg/dL Urine Ketones Negative (Negative) mg/dL Urine Blood Large H (Negative) Urine Nitrite Negative (Negative) Urine Bilirubin Negative (Negative) Urine Urobilinogen Normal (Normal) mg/dL Ur Leukocyte Esterase Moderate H (Negative) Urine Microscopic RBC 15-30 H (0-3) per hpf Urine Microscopic WBC TNTC H (0-3) per hpf Ur Squamous Epith Cells Many H (None-Few) per lpf Urine Bacteria Few (None-Few) per hpf Hyaline Casts Few (None-Few) per lpf Ur Culture Indicated? YES A (NO) 11/26/16 11/26/16 11/26/16 Range/Units 23:23 23:23 23:23 WBC 14.1 H (4.3-11.1) K/mcL RBC 3.90 (3.82-4.97) M/mcL Hgb 11.5 (11.5-15.4) g/dL Hct 35.1 L (35.3-44.9) % MCV 90.0 (83.0-100.0) fL MCH 29.5 (28.0-33.3) pg MCHC 32.8 (31.6-35.5) g/dL RDW 14.1 (11.5-14.5) % Plt Count 390 (140-400) K/mcL MPV 9.3 L (9.4-12.4) fL Immature Gran % 0.5 (0-4) % Seg Neutrophils % 90.9 % Lymphocytes % 4.7 % Monocytes % 3.1 % Eosinophils % 0.6 % Basophils % 0.2 % Neutrophils # 12.8 H (1.6-8.9) K/mcL Lymphocytes # 0.7 (0.6-4.6) K/mcL Monocytes # 0.4 (0.0-1.3) K/mcL Eosinophils # 0.1 (0.0-0.6) K/mcL Basophils # 0.0 (0.0-0.2) K/mcL Immature Plt Fraction 1.8 (1.1-6.1) % PT 10.8 (9.4-12.1) Seconds INR 1.0 APTT 29.1 (26.0-36.0) Seconds Sodium 138 (136-145) mEq/L Potassium 3.5 (3.5-4.5) mEq/L Chloride 106 (98-109) mEq/L Carbon Dioxide 20 (19-29) mEq/L BUN 11 (7-20) mg/dL Creatinine 0.75 (0.57-1.11) mg/dL Est GFR ( Amer) > 60 (> 60) Est GFR (Non-Af Amer) > 60 (> 60) BUN/Creatinine Ratio 15 (6-26) Glucose 98 (70-99) mg/dL Calculated Osmolality 285 (280-300) Lactic Acid (0.5-2.2) mmol/L Calcium 9.1 (8.6-10.8) mg/dL Total Bilirubin (0.2-1.2) mg/dL Direct Bilirubin (0.0-0.5) mg/dL Indirect Bilirubin (0.0-1.2) mg/dL AST (5-34) Units/L ALT (0-55) Units/L Alkaline Phosphatase (38-126) Units/L Troponin I (0-0.03) ng/mL C-Reactive Protein (Less than 5) mg/L B-Natriuretic Peptide (0-100) pg/mL Serum Total Protein (6.0-8.3) g/dL Albumin (3.5-5.0) g/dL Globulin (2.4-3.5) g/dL Albumin/Globulin Ratio (1.1-2.2) Urine Color (Yellow) Urine Clarity (Clear) Urine pH (5.0-8.0) pH Units Ur Specific [place] (1.010-1.025) Urine Protein (Neg-Trace) mg/dL Urine Glucose (UA) (Normal) mg/dL Urine Ketones (Negative) mg/dL Urine Blood (Negative) Urine Nitrite (Negative) Urine Bilirubin (Negative) Urine Urobilinogen (Normal) mg/dL Ur Leukocyte Esterase (Negative) Urine Microscopic RBC (0-3) per hpf Urine Microscopic WBC (0-3) per hpf Ur Squamous Epith Cells (None-Few) per lpf Urine Bacteria (None-Few) per hpf Hyaline Casts (None-Few) per lpf Ur Culture Indicated? (NO) 11/26/16 11/26/16 11/26/16 Range/Units 23:23 23:23 23:23 WBC (4.3-11.1) K/mcL RBC (3.82-4.97) M/mcL Hgb (11.5-15.4) g/dL Hct (35.3-44.9) % MCV (83.0-100.0) fL MCH (28.0-33.3) pg MCHC (31.6-35.5) g/dL RDW (11.5-14.5) % Plt Count (140-400) K/mcL MPV (9.4-12.4) fL Immature Gran % (0-4) % Seg Neutrophils % % Lymphocytes % % Monocytes % % Eosinophils % % Basophils % % Neutrophils # (1.6-8.9) K/mcL Lymphocytes # (0.6-4.6) K/mcL Monocytes # (0.0-1.3) K/mcL Eosinophils # (0.0-0.6) K/mcL Basophils # (0.0-0.2) K/mcL Immature Plt Fraction (1.1-6.1) % PT (9.4-12.1) Seconds INR APTT (26.0-36.0) Seconds Sodium (136-145) mEq/L Potassium (3.5-4.5) mEq/L Chloride (98-109) mEq/L Carbon Dioxide (19-29) mEq/L BUN (7-20) mg/dL Creatinine (0.57-1.11) mg/dL Est GFR ( Amer) (> 60) Est GFR (Non-Af Amer) (> 60) BUN/Creatinine Ratio (6-26) Glucose (70-99) mg/dL Calculated Osmolality (280-300) Lactic Acid 1.4 (0.5-2.2) mmol/L Calcium (8.6-10.8) mg/dL Total Bilirubin 0.4 (0.2-1.2) mg/dL Direct Bilirubin 0.3 (0.0-0.5) mg/dL Indirect Bilirubin 0.1 (0.0-1.2) mg/dL AST 28 (5-34) Units/L ALT 72 H (0-55) Units/L Alkaline Phosphatase 119 (38-126) Units/L Troponin I (0-0.03) ng/mL C-Reactive Protein 34 H (Less than 5) mg/L B-Natriuretic Peptide (0-100) pg/mL Serum Total Protein 6.5 (6.0-8.3) g/dL Albumin 2.7 L (3.5-5.0) g/dL Globulin 3.8 H (2.4-3.5) g/dL Albumin/Globulin Ratio 0.7 L (1.1-2.2) Urine Color (Yellow) Urine Clarity (Clear) Urine pH (5.0-8.0) pH Units Ur Specific [place] (1.010-1.025) Urine Protein (Neg-Trace) mg/dL Urine Glucose (UA) (Normal) mg/dL Urine Ketones (Negative) mg/dL Urine Blood (Negative) Urine Nitrite (Negative) Urine Bilirubin (Negative) Urine Urobilinogen (Normal) mg/dL Ur Leukocyte Esterase (Negative) Urine Microscopic RBC (0-3) per hpf Urine Microscopic WBC (0-3) per hpf Ur Squamous Epith Cells (None-Few) per lpf Urine Bacteria (None-Few) per hpf Hyaline Casts (None-Few) per lpf Ur Culture Indicated? (NO) - Radiology Data Radiology results reviewed: Yes I reviewed the patient's radiology results.
[2016-11-26] MEDS ORDERED: 0.9 % Sodium Chloride 1,000 ML IVC SCH (23:15)
[2016-11-26 23:20] LABS: Bilirubin,Urine Negative (Negative); Blood,Urine Large (Negative); Clarity,Urine Cloudy (Clear); Color,Urine Yellow (Yellow); Glucose,Urine (UA) Normal (Normal); Ketones,Urine Negative (Negative); Leukocyte Esterase,Urine Moderate (Negative); Nitrite,Urine Negative (Negative); Protein,Urine 30 mg/dL (Neg-Trace); Specific Gravity,Urine 1.019 (1.010-1.025); Urobilinogen,Urine Normal (Normal)
[2016-11-26 23:23] LABS: Bacteria,Urine Few per hpf (None-Few); Hyaline Casts,Urine Few per lpf (None-Few); RBC,Urine 15-30 per hpf (0-3); Squamous Epithelial Cell,Urine Many per lpf (None-Few); WBC,Urine TNTC per hpf (0-3)
[2016-11-26 23:35] LABS: Basophils % 0.2 %; Eosinophils # 0.1 K/mcL (0.0-0.6); Eosinophils % 0.6 %; Hematocrit 35.1 % (35.3-44.9); Hemoglobin 11.5 g/dL (11.5-15.4); Immature Granulocytes % 0.5 % (0-4); Immature Platelets 1.8 % (1.1-6.1); Lymphocytes # 0.7 K/mcL (0.6-4.6); Lymphocytes % 4.7 %; Mean Corpuscular HGB Conc 32.8 g/dL (31.6-35.5); Mean Corpuscular Hemoglobin 29.5 pg (28.0-33.3); Mean Platelet Volume 9.3 fL (9.4-12.4); Monocytes # 0.4 K/mcL (0.0-1.3); Monocytes % 3.1 %; Neutrophils # 12.8 K/mcL (1.6-8.9); Platelet Count 390 K/mcL (140-400); Red Cell Distribution Width 14.1 % (11.5-14.5); Segmented Neutrophils % 90.9 %
[2016-11-26 23:39] LABS: Prothrombin Time 10.8 Seconds (9.4-12.1)
[2016-11-26 23:42] LABS: Activated Partial Thrombo Time 29.1 Seconds (26.0-36.0)
[2016-11-26 23:47] LABS: BUN/Creatinine Ratio 15 (6-26); Blood Urea Nitrogen 11 mg/dL (7-20); Calcium 9.1 mg/dL (8.6-10.8); Carbon Dioxide 20 mEq/L (19-29); Chloride 106 mEq/L (98-109); Glucose 98 mg/dL (70-99); Osmolality,Calculated 285 (280-300); Potassium 3.5 mEq/L (3.5-4.5); Sodium 138 mEq/L (136-145); eGFR For African Americans > 60 (> 60); eGFR For Non-African Americans > 60 (> 60)
[2016-11-26 23:49] LABS: Albumin 2.7 g/dL (3.5-5.0); Albumin/Globulin Ratio 0.7 (1.1-2.2); Bilirubin,Direct 0.3 mg/dL (0.0-0.5); Bilirubin,Indirect 0.1 mg/dL (0.0-1.2); Bilirubin,Total 0.4 mg/dL (0.2-1.2); Globulin 3.8 g/dL (2.4-3.5); Total Protein 6.5 g/dL (6.0-8.3)
[2016-11-27] MEDS ORDERED: Ondansetron 4 MG/2 ML VIAL IVP ONE (00:05)
[2016-11-27] MEDS ORDERED: Piperacillin/Tazobactam 3.375 GM in D5% in Water (Mini-Bag+) 100 ML IVPB ONE (00:41)
[2016-11-27] MEDS ORDERED: *HR* HYDROmorphone (PF) 1 MG/ML SYRINGE IVP ONE (00:42)
[2016-11-27] MEDS ORDERED: 0.9 % Sodium Chloride 1,000 ML ONE (03:08)
--- NOTE | 2016-11-27 03:21 | Internal Med History&Physical ---
Date of Encounter: 11/27/16 Time of Encounter: 03:15 Assessment and Plan (1) Acute pyelonephritis Current visit: Yes Status: Acute Patients has bilateral loin pain and tenderness. Herein has numerous plus cells will simply is not clean one. Picture suggestive of pyelonephritis. Patient was hypotensive during my interview systolic 90s I will give the patient total of 3 L bolus of normal saline. Continue normal citizen hydration. I will start the patient empirically on vancomycin and self applying a weak urine and blood cultures. She denies any foul-smelling vaginal drainage. Drainage. She has some headache neck pain which may be due to meningitis most of the parts of the pyelonephritis picture however she had individual anesthesia during delivery. We have a good alternative source store presentation teaches the pyelonephritis. She did not have these headaches and neck pain except today. They were not present after the procedure. Will give antibiotics and hydrate and see the response. David dave monitoring. Inpatient status. She will receive SCD and famotidine for DVT and peptic ulcer disease prophylaxis respectively. She is focal. Internal Medicine - H&P: HPI Chief complaint: back pain and fever History of present illness: Ms. Landin is a 20 year old female who delivered by normal spontaneous vaginal delivery on Wednesday 5 days ago presents to the emergency room today with fever and back pain. Patient has just completed 2 weeks of antibiotics with nitrofurantoin for a urinary tract infection. Today since the morning patient has been feeling sick she has slept all day. She has been complaining of back pain bilaterally. She has been nauseous. She has been having fevers and chills up to hundred into it. She still has vaginal drainage ditches clearing up reddish in color but no foul-smelling drainage or prevent drainage. She has some lower abdominal discomfort. She denies any history of prior kidney stones. CT scan performed in the emergency room of the abdomen and pelvis shows no evidence of obstructive neuropathy. Patient mentioned she had individual anesthesia for delivery. 3 attempts were made. Patient is having some headaches but denies any neck stiffness and mother reports no confusion. No sputum production shortness of breath. No diarrhea. 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 Removed. She was also diagnosed with close seizes (and see. She denies smoking alcohol or illicit drug use. Family history of blood clots however patient was investigated for that and she does not have any genetic reasons for blood clotting. Past Med Surg Social Fam HX - Past Medical History Medical history: DVT Psychiatric history: no psych history - Social History Smoking Status: Never smoker Smokeless Tobacco Status: No Alcohol use: none Drug use: none - Family History Mother Adopted: [place]: Dayana Family Member Ethnicity: Non- Living Status: Still Living Hx Family Cardiac Disorders: No Hx Family Respiratory Disorders: No Hx Family Cancer: No Hx Family Autoimmune Disorders: Yes (RA) Hx Family Medical Disorders: Yes (celiac disease, anemia) Maternal Grandfather Adopted: No Age: 72 Family Member Ethnicity: Non- Living Status: Still Living Hx Family Cardiac Disorders: Yes (heart disease) Hx Family Respiratory Disorders: Yes (COPD) Hx Family Cancer: No Hx Family GI Disorders: No Hx Family Endocrine Disorder: No Hx Family Neuromuscular Disorders: No Hx Family Neurologic Disorders: No Hx Family HEENT Disorders: No Hx Family Autoimmune Disorders: No Internal Medicine - H&P: Meds Gummies 2 tab PO QPM 08/31/16 [History] Ursodiol [Ursodiol] 300 mg PO TID 11/06/16 [History] Cetirizine HCl [Zyrtec] 10 mg PO DAILY PRN 11/14/16 [History] Ferrous Sulfate [Iron] 325 mg PO BID 11/14/16 [History] Nitrofurantoin (BID) [Macrobid] 100 mg PO BID 11/14/16 [History] Allergies promethazine [From Phenergan] Allergy (Verified 11/26/16 22:35) Hallucinating All Systems PM: A 10-system review of systems was performed and is negative for pertinent findings except as documented above in the HPI. Review of systems: 10. ROS is negative except for HPI - Constitutional Vitals: Temp Pulse Resp BP Pulse Ox 101.8 F H 117 18 125/76 100 11/27/16 03:01 11/27/16 03:01 11/27/16 03:01 11/27/16 03:01 11/27/16 03:01 Exam: Gen.: patient alert and oriented times 3 not in distress. Mona: normal S1; no additional sounds were murmurs. Tachycardic chest: clear to auscultation. Abdomen: soft. Bilateral CVA tenderness. No focal neurological deficits. Negative kernigs and brudizniski LE: trace swelling Internal Med - H&P Results - Labs CBC & Chem 7: 11/26/16 23:23 11/26/16 23:23
[2016-11-27] MEDS ORDERED: Cefepime HCl 2,000 MG in D5% in Water (Mini-Bag+) 100 ML IVPB SCH (04:00)
[2016-11-27] MEDS ORDERED: Vancomycin 1,000 MG in D5% in Water 250 ML IVPB SCH (04:00)
[2016-11-27] MEDS ORDERED: Vancomycin 1,500 MG in D5% in Water 250 ML IVPB SCH (04:00)
[2016-11-27] MEDS: 0.9 % Sodium Chloride 1,000 ML IVC SCH ×4 (04:12→08:38)
[2016-11-27] MEDS ORDERED: Acetaminophen IV 1,000 MG/100 ML INFUS..BTL IVPB ONE (04:28)
[2016-11-27] MEDS: Ondansetron 4 MG/2 ML VIAL IVP PRN ×2 (04:36→12:48)
[2016-11-27] MEDS: *HR* Morphine 2 MG/ML SYRINGE IVP PRN ×2 (05:14→18:23)
[2016-11-27] MEDS ORDERED: Acetaminophen 325 MG TABLET PO PRN (05:39)
[2016-11-27] MEDS ORDERED: 0.9 % Sodium Chloride 1,000 ML IVC ONE (06:18)
[2016-11-27] MEDS ORDERED: Ketorolac 30 MG/ML VIAL IVP ONE (08:41)
[2016-11-27] MEDS ORDERED: Famotidine 20 MG/2 ML VIAL IVP SCH (09:00)
[2016-11-27] MEDS ORDERED: 0.9 % Sodium Chloride 1,000 ML IVC SCH (12:40)
[2016-11-27] MEDS: *HR* OxyCODONE/APAP 10/325 TABLET PO PRN (12:54)
[2016-11-27] MEDS ORDERED: Gentamicin 360 MG in 0.9 % Sodium Chloride 100 ML IVPB SCH (13:00)
[2016-11-27] MEDS ORDERED: Gentamicin 360 MG in 0.9 % Sodium Chloride 100 ML IVPB ONE (14:00)
[2016-11-27] MEDS ORDERED: Clindamycin 900 MG/50 ML 900 MG/50 ML IV.SOLN IVPB SCH (16:00)
--- NOTE | 2016-11-27 16:53 | Electrocardiograph Report ---
[place] [id number] Test Date: 2016-11-27 Pat Name: Leoncio Landin Department: 104 Room: 2N03 Gender: F [employer]: : 1995 Requested By: Matthew Mcmanus Order Number: [id number] Reading MD: Teetee Padgett Measurements Intervals [place] Rate: 104 P: 31 KS: 176 QRS: 52 QRSD: 83 T: 8 QT: 302 QTc: 362 Interpretive Statements SINUS TACHYCARDIA ABNORMAL RHYTHM ECG Electronically Signed On 11-27-2016 16:51:40 EST by Teetee Padgett
--- NOTE | 2016-11-27 18:33 | Event Note ---
Date of Encounter: 11/27/16 Time of Encounter: 08:50 20 Y/O F 5 days post- Patient was recently discharged from [facility] 2-3 days following an uneventful vaginal delivery She developed high grade fever with chills yesterday and presented to the ER She is being managed for severe sepsis secondary to pyelonpehritis and suspsected endometritis She had been on IVF with improvement of her BP She has also been started on broad spectrum antibiotics She is seen multiple times today with family at the bedside She is awake and alert On physical exam, she remained febrile and tachycardic, not in respiratory distress Neuro: EMMA, EOMI, No neck stiffness, no meningeal signs, no speech deficits, no focal deficits HEENT: Moist oral mucosa Chest is clear Heart: S1, S2, tachycardia, no m/g/r Abdomen is soft, mild suprapubic tenderness, Pelvic exam is deferred Extremities: No pedal edema Indwelling Braga with adequate urine output Labs and Imaging reviewed CBC: Leukocytosis with left shift Chem WNL Normal lactate X2 UA: UTI Abdomen/Plevic CT: Enlarged post- uterus, trace pelvic free fluid. Pelvic USS -Resulted 1614 cannot rule out complex intrauterine contents Assessment/Plan Patient with severe sepsis secondary to possible endometritis and pyelonephritis Currently on acceptable antibiotics WEIGHING STATION OPERATOR had been consulted on admission, pending review, I also paged WEIGHING STATION OPERATOR geriatric nurse practitioner and spoke to an RN, requesting a review In the meantime, patient and her family has requested a transfer to [facility] I have spoken to transfer center multiple times today, no beds available. She has an accepting physician and will be transferred as soon as a bed is available Plan of care continuously discussed with family and patient, verbalized understanding
--- NOTE | 2016-11-27 19:34 | OB/GYN Consult Note ---
Date of Encounter: 11/27/16 Time of Encounter: 19:30 History of Present Illness Consult date: 11/27/16 History of present illness: I received a call regarding this patient from the hospitalist at 18:28. I was in the process of performing a section and was unable to talk to the hospitalist. Message from the hospitalist was relayed to me by the nursing staff. Once the was completed, I returned the call to the hospitalist. However ; the answering service said it underwent to his voicemail. I then reviewed his most recent note noting that the patient is going be transferred to [facility]. I agree with transfer . Past Med Surg Social Fam HX - Past Medical History Medical history: DVT Psychiatric history: no psych history - Social History Smoking Status: Never smoker Smokeless Tobacco Status: No Alcohol use: none Drug use: none - Family History Mother Adopted: [place]: Dayana Family Member Ethnicity: Non- Living Status: Still Living Hx Family Cardiac Disorders: No Hx Family Respiratory Disorders: No Hx Family Cancer: No Hx Family Autoimmune Disorders: Yes (RA) Hx Family Medical Disorders: Yes (celiac disease, anemia) Maternal Grandfather Adopted: No Age: 72 Family Member Ethnicity: Non- Living Status: Still Living Hx Family Cardiac Disorders: Yes (heart disease) Hx Family Respiratory Disorders: Yes (COPD) Hx Family Cancer: No Hx Family GI Disorders: No Hx Family Endocrine Disorder: No Hx Family Neuromuscular Disorders: No Hx Family Neurologic Disorders: No Hx Family HEENT Disorders: No Hx Family Autoimmune Disorders: No Medications and Allergies Uxx010/Iron Fumarate/FA/Dss [ 19 Tablet] 1 tab PO DAILY 08/31/16 [ History] Ursodiol [Ursodiol] 300 mg PO TID 11/06/16 [History] Cetirizine HCl [Zyrtec] 10 mg PO DAILY PRN 11/14/16 [History] Ferrous Sulfate [Iron] 325 mg PO BID 11/14/16 [History] Allergies promethazine [From Phenergan] Allergy (Verified 11/26/16 22:35) Hallucinating Exam - Vital Signs Vital signs: Initial Vital Signs Temp Pulse Resp BP Pulse Ox 100.6 F H 133 20 142/89 97 11/26/16 22:35 11/26/16 22:35 11/26/16 22:35 11/26/16 22:35 11/26/16 22:35 Results Result Diagrams: 11/26/16 23:23 11/26/16 23:23 Abnormal lab results WBC 14.1 K/mcL (4.3-11.1) H 11/26/16 23:23 Hct 35.1 % (35.3-44.9) L 11/26/16 23:23 MPV 9.3 fL (9.4-12.4) L 11/26/16 23:23 Neutrophils # 12.8 K/mcL (1.6-8.9) H 11/26/16 23:23 ALT 72 Units/L (0-55) H 11/26/16 23:23 C-Reactive Protein 34 mg/L (Less than 5) H 11/26/16 23:23 B-Natriuretic Peptide 113 pg/mL (0-100) H 11/26/16 22:25 Albumin 2.7 g/dL (3.5-5.0) L 11/26/16 23:23 Globulin 3.8 g/dL (2.4-3.5) H 11/26/16 23:23 Albumin/Globulin Ratio 0.7 (1.1-2.2) L 11/26/16 23:23 Urine Clarity Cloudy (Clear) A 11/26/16 23:00 Urine Protein 30 mg/dL (Neg-Trace) H 11/26/16 23:00 Urine Blood Large (Negative) H 11/26/16 23:00 Ur Leukocyte Esterase Moderate (Negative) H 11/26/16 23:00 Urine Microscopic RBC 15-30 per hpf (0-3) H 11/26/16 23:00 Urine Microscopic WBC TNTC per hpf (0-3) H 11/26/16 23:00 Ur Squamous Epith Cells Many per lpf (None-Few) H 11/26/16 23:00 Ur Culture Indicated? YES (NO) A 11/26/16 23:00 All other labs normal. Consult Discharge Plan - Plan Referrals: Rajni Mcgraw CNP [Primary Care Provider] -
[2016-11-28] MEDS: *HR* OxyCODONE/APAP 10/325 TABLET PO PRN (00:19)
[2016-11-28] MEDS: Ondansetron 4 MG/2 ML VIAL IVP PRN (00:20)
[2016-11-28 00:30] VITALS: BP 117/57
[2016-11-28] MEDS ORDERED: Aminoglycoside Consult 1 EACH MC ONE (00:49)
--- NOTE | 2016-11-28 03:10 | Discharge Summary ---
Date of Encounter: 11/28/16 Time of Encounter: 03:06 - Discharge Diagnosis (1) Acute pyelonephritis Priority: Primary Status: Acute Comments: Vancomycin and self upon initially started. However antibiotics adjusted afterwards to cover for suspected endometritis - Discharge Medications Home Medications: [id number]/Iron Fumarate/FA/Dss [ 19 Tablet] 1 tab PO DAILY 08/31/16 [ History] Ursodiol [Ursodiol] 300 mg PO TID 11/06/16 [History] Cetirizine HCl [Zyrtec] 10 mg PO DAILY PRN 11/14/16 [History] Ferrous Sulfate [Iron] 325 mg PO BID 11/14/16 [History] Allergies/Adverse Reactions: Allergies promethazine [From Phenergan] Allergy (Verified 11/26/16 22:35) Hallucinating Procedures/tests Complete & Pending: Procedures Performed prior 72 hours Category Date Time Status US pelvis w doppler [US] Stat Exams 11/27/16 11:21 Completed Date of admission: 11/27/16 03:07 Primary care physician: Rajni Mcgraw CNP Consults: 11/27/16 03:11 Consult to Occupational Therapy [CONS] Routine Comment: Evaluate, develop and implement POC Consult to Physical Therapy [CONS] Routine Comment: Evaluate, develop and implement POC - Patient Status Disposition: Transfer Intermediate Care Fac Condition: Fair - Discharge Instructions Follow Up With: Rajni Mcgraw CNP [Primary Care Provider] - Interval History: Patient had the recent spontaneous vaginal delivery 5 days ago using epidural anesthesia and yesterday she started complaining of fevers and bilateral flank pain. Her urine analysis showed evidence of urinary tract infection and therefore she was admitted to the hospital with a working diagnosis of acute pyelonephritis. CT scan of the abdomen was performed showed no evidence of obstructive neuropathy or infected stones. Patient was appropriately resuscitated with 4 L bolus of normal saline followed by continuous normal saline infusion. Broad-spectrum antibiotics with vancomycin and cefepime were started. Pelvic ultrasound was performed and raised question for possibility of endometritis. SIGHT EFFECTS SPECIALIST was unable to evaluate the patient at our facility and therefore patient has been transferred to [facility]. Patient has been making excellent amount of urine output. She was hemodynamically stable at discharge. Antibiotics have been adjusted to cover for pathogens causing endometritis. Please refer to my admission H&P. Hospital course: Ms. Landin is a 20 year old female - Time Spent with Patient Total time spent providing and/or coordinating discharge services: - Constitutional Vitals: Temp Pulse Resp BP Pulse Ox 100.0 F H 88 15 117/57 96 11/27/16 23:45 11/27/16 23:45 11/27/16 23:45 11/27/16 23:45 11/27/16 23:45 Exam: General: Alert and oriented x3. No distress Chest: Clear Abdomen: bilateral flank pain LE: Lax calf muscle. 1+ swelling Neuro: No focal deficits Pupil: 3 m reactive
[2016-11-28] MEDS ORDERED: Gentamicin 360 MG in 0.9 % Sodium Chloride 100 ML IVPB SCH (14:00)
== END 2016-11-28 00:50 | DRG 776 ==
LOC: EMEROO 22:31 → 3ANU 22:31 → SUATTDRO 11-27 03:07 → 2NNU 11-27 12:38
PROVIDERS: ADMIT Hospitalist; ATTEND Internal Medicine

== ENCOUNTER 2017-03-03 16:18 | Observation (INO) ==
--- NOTE | 2017-03-03 17:08 | Emergency Department Note ---
Disposition Referrals: Rajni Mcgraw CNP [Primary Care Provider] - Forms: ED Satisfaction Letter SOB HPI - General Chief Complaint: ED Shortness of Breath/Dyspnea Stated Complaint: CP, ANNA Time Seen by Provider: 03/03/17 17:02 Source: patient, family Limitations: no limitations - Related Data Home Medications Medication Instructions Recorded Confirmed Cnt510/Iron Fumarate/FA/Dss 1 tab PO DAILY 08/31/16 11/27/16 [ 19 Tablet] Ursodiol [Ursodiol] 300 mg PO TID 11/06/16 11/27/16 Cetirizine HCl [Zyrtec] 10 mg PO DAILY PRN 11/14/16 11/27/16 Ferrous Sulfate [Iron] 325 mg PO BID 11/14/16 11/27/16 Allergies Allergy/AdvReac Type Severity Reaction Status Date / Time promethazine [From Phenergan] Allergy Hallucinati Verified 03/03/17 16:36 ng Past Medical History - Past Medical History Medical history: Reports: DVT, other Psychiatric history: Reports: no psych history 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 - Social History Smoking Status: Never smoker Smokeless Tobacco Status: No Alcohol use: Reports: none Drug use: Reports: none Physical Exam - General Limitations: no limitations General appearance: alert, anxious Course Vital Signs Temperature 98.1 F 03/03/17 16:28 Pulse Rate 84 03/03/17 16:28 Respiratory Rate 24 03/03/17 16:28 Blood Pressure 110/68 03/03/17 16:28 O2 Sat by Pulse Oximetry 100 03/03/17 16:28 Temperature 98.1 F 03/03/17 16:28 Pulse Rate 84 03/03/17 16:28 Respiratory Rate 24 03/03/17 16:28 Blood Pressure 110/68 03/03/17 16:28 O2 Sat by Pulse Oximetry 100 03/03/17 16:28 Oxygen Delivery Oxygen Delivery Room Air
[2017-03-03] MEDS ORDERED: Ondansetron 4 MG/2 ML VIAL IVP ONE ×3 (17:18→20:51)
[2017-03-03] MEDS ORDERED: *HR* HYDROmorphone (PF) 1 MG/ML SYRINGE IVP ONE ×3 (17:18→20:51)
[2017-03-03 17:24] LABS: Basophils % 0.1 %; Eosinophils % 0.4 %; Hemoglobin 13.8 g/dL (11.5-15.4); Immature Granulocytes % 0.3 % (0-4); Lymphocytes # 1.5 K/mcL (0.6-4.6); Lymphocytes % 16.7 %; Mean Corpuscular HGB Conc 32.9 g/dL (31.6-35.5); Mean Corpuscular Hemoglobin 27.8 pg (28.0-33.3); Mean Corpuscular Volume 84.7 fL (83.0-100.0); Mean Platelet Volume 9.1 fL (9.4-12.4); Monocytes # 0.4 K/mcL (0.0-1.3); Monocytes % 4.5 %; Platelet Count 405 K/mcL (140-400); Red Blood Count 4.96 M/mcL (3.82-4.97); Red Cell Distribution Width 12.6 % (11.5-14.5)
[2017-03-03 17:38] LABS: Alanine Aminotransferase 74 Units/L (0-55); Albumin 4.1 g/dL (3.5-5.0); Albumin/Globulin Ratio 1.2 (1.1-2.2); Alkaline Phosphatase 90 Units/L (38-126); Aspartate Amino Transferase 55 Units/L (5-34); BUN/Creatinine Ratio 14 (6-26); Bilirubin,Direct 0.7 mg/dL (0.0-0.5); Bilirubin,Indirect 1.1 mg/dL (0.0-1.2); Bilirubin,Total 1.8 mg/dL (0.2-1.2); Blood Urea Nitrogen 13 mg/dL (7-20); Calcium 9.8 mg/dL (8.6-10.8); Carbon Dioxide 27 mEq/L (19-29); Chloride 102 mEq/L (98-109); Globulin 3.4 g/dL (2.4-3.5); Glucose 102 mg/dL (70-99); Osmolality,Calculated 286 (280-300); Sodium 138 mEq/L (136-145); Total Protein 7.5 g/dL (6.0-8.3); eGFR For African Americans > 60 (> 60); eGFR For Non-African Americans > 60 (> 60)
[2017-03-03 17:51] LABS: INR 1.1; Prothrombin Time 11.7 Seconds (9.4-12.1)
[2017-03-03 17:53] LABS: Activated Partial Thrombo Time 30.1 Seconds (26.0-36.0)
--- NOTE | 2017-03-03 19:48 | Emergency Department Note ---
Disposition Clinical Impression: Common bile duct stone, Biliary colic Disposition: Admitted As Inpatient Condition: Good Abdominal Pain HPI - General Chief Complaint: ED Shortness of Breath/Dyspnea Stated Complaint: CP, ANNA Time Seen by Provider: 03/03/17 17:02 Source: patient, family Mode of arrival: ambulatory Limitations: no limitations Nursing Notes Reviewed: Yes Vital Signs Reviewed: Yes - History of Present Illness Pt Subjective Complaint: abdominal pain Onset (ago): hour(s) (2) Consistency: constant Location: RUQ, epigastric Pain Severity: severe Quality: stabbing, sharp Radiation: none Migration to: no migration Improves with: nothing Worsens with: nothing Associated symptoms: Reports: vomiting (x1). Denies: constipation, dysuria, hematemesis, hematochezia Treatments prior to arrival: none, other (Patient has a history of cholestasis during has not had a follow-up since delivery) - Related Data Home Medications Medication Instructions Recorded Confirmed No Known Home Drugs 03/03/17 03/03/17 Allergies Allergy/AdvReac Type Severity Reaction Status Date / Time promethazine [From Phenergan] Allergy Hallucinati Verified 03/03/17 16:36 ng All systems ED: reviewed and negative except as stated. Constitutional: Denies: fever, chills, weakness Respiratory: Reports: dyspnea Gastrointestinal: Reports: nausea, vomiting. Denies: hematemesis, melena, hematochezia Abdominal Pain PMH - Past Medical History Medical history: Reports: DVT, other Female Surgical History: Reports: other SERVICE CAPTAIN history: Reports: no SERVICE CAPTAIN history Psychiatric history: Reports: no psych history - Social History Smoking status: Never smoker Alcohol use: Reports: none Drug use: Reports: none Physical Exam - General Limitations: no limitations General appearance: alert, anxious - Head Head exam: atraumatic, normocephalic, normal inspection - Eye Eye exam: Present: normal appearance, PERRL, EOMI - Expanded Eye Exam Pupils: Left: reactive - ENT ENT exam: normal exam, normal oropharynx, mucous membranes moist - Expanded ENT Exam External ear exam: Present: normal external inspection Mouth exam: Present: normal external inspection Teeth exam: Present: normal inspection Throat exam: Present: normal inspection - Neck Neck exam: Present: normal inspection, full ROM, trachea midline - Chest Chest inspection: Present: normal inspection, symmetric chest wall rise - Respiratory Respiratory exam: Present: other (Tachypneic) - Cardiovascular Cardiovascular exam: Present: regular rate, normal rhythm, normal heart sounds - Abdominal Exam Abdominal exam: Present: soft, normal bowel sounds. Absent: guarding, rebound Abdominal tenderness: Present: RUQ, epigastrium, moderate - Extremities Exam Extremities exam: Present: normal inspection, full ROM. Absent: tenderness, pedal edema - Expanded Upper Extremity Exam Shoulder exam: Present: normal inspection, full ROM Arm exam: Present: normal inspection, full ROM Elbow exam: Present: normal inspection, full ROM Forearm/Wrist exam: Present: normal inspection, full ROM Hand exam: Present: normal inspection, full ROM Vascular exam: Normal: capillary refill, radial pulse - Expanded Lower Extremity Exam Hip/Pelvis exam: Present: normal inspection, full ROM Upper leg exam: Present: normal inspection, full ROM Knee exam: Present: normal inspection, full ROM Lower leg exam: Present: normal inspection, full ROM Ankle exam: Present: normal inspection, full ROM Foot/toe exam: Present: normal inspection, full ROM Neurovascular/Tendon exam: Absent: motor deficit, sensory deficit, tendon deficit - Back Exam Back exam: Present: normal inspection, full ROM. Absent: tenderness - Neurological Exam Neurological exam: Present: alert, oriented X3 - Expanded Neurological Exam Patient oriented to: Present: person, place, time Coma Scale Eye Opening: Spontaneous Coma Scale Motor Response: Obeys Commands Coma Scale Verbal Response: Oriented Coma Scale Total: 15 - Psychiatric Psychiatric exam: Present: normal affect, normal mood - Skin Skin exam: Present: warm, dry, intact, normal color Course - Consultations Consultation #1: I spoke with Dr. conroy to confirm that Dr. jones is in town this week so he can keep the patient here in case she would need an ERCP Time: 20:36 Vital Signs Temperature 98.1 F 03/03/17 16:28 Pulse Rate 84 03/03/17 16:28 Respiratory Rate 24 03/03/17 16:28 Blood Pressure 110/68 03/03/17 16:28 O2 Sat by Pulse Oximetry 100 03/03/17 16:28 Temperature 98.1 F 03/03/17 16:28 Pulse Rate 84 03/03/17 16:28 Respiratory Rate 24 03/03/17 16:28 Blood Pressure 110/68 03/03/17 16:28 O2 Sat by Pulse Oximetry 100 03/03/17 16:28 Oxygen Delivery Oxygen Delivery Room Air Abdominal Pain - Differential Diagnosis Differential Diagnosis: Likely: constipation, colonic obstruction, diverticulitis, diverticulosis, endometriosis - Medical Records Medical records reviewed: Yes I reviewed the patient's medical records. - Lab Data Lab results reviewed: Yes I reviewed the patient's lab results. Result diagrams: 03/03/17 17:15 03/03/17 17:15 Lab Results 03/03/17 03/03/17 03/03/17 Range/Units 17:15 17:15 17:15 WBC 9.0 (4.3-11.1) K/mcL RBC 4.96 (3.82-4.97) M/mcL Hgb 13.8 (11.5-15.4) g/dL Hct 42.0 (35.3-44.9) % MCV 84.7 (83.0-100.0) fL MCH 27.8 L (28.0-33.3) pg MCHC 32.9 (31.6-35.5) g/dL RDW 12.6 (11.5-14.5) % Plt Count 405 H (140-400) K/mcL MPV 9.1 L (9.4-12.4) fL Immature Gran % 0.3 (0-4) % Seg Neutrophils % 78.0 % Lymphocytes % 16.7 % Monocytes % 4.5 % Eosinophils % 0.4 % Basophils % 0.1 % Neutrophils # 7.0 (1.6-8.9) K/mcL Lymphocytes # 1.5 (0.6-4.6) K/mcL Monocytes # 0.4 (0.0-1.3) K/mcL Eosinophils # 0.0 (0.0-0.6) K/mcL Basophils # 0.0 (0.0-0.2) K/mcL PT 11.7 (9.4-12.1) Seconds INR 1.1 APTT 30.1 (26.0-36.0) Seconds D-Dimer 280 (0-500) ng/mLFEU Sodium 138 (136-145) mEq/L Potassium 4.0 (3.5-4.5) mEq/L Chloride 102 (98-109) mEq/L Carbon Dioxide 27 (19-29) mEq/L BUN 13 (7-20) mg/dL Creatinine 0.91 (0.57-1.11) mg/dL Est GFR ( Amer) > 60 (> 60) Est GFR (Non-Af Amer) > 60 (> 60) BUN/Creatinine Ratio 14 (6-26) Glucose 102 H (70-99) mg/dL Calculated Osmolality 286 (280-300) Calcium 9.8 (8.6-10.8) mg/dL Total Bilirubin 1.8 H (0.2-1.2) mg/dL Direct Bilirubin 0.7 H (0.0-0.5) mg/dL Indirect Bilirubin 1.1 (0.0-1.2) mg/dL AST 55 H (5-34) Units/L ALT 74 H (0-55) Units/L Alkaline Phosphatase 90 (38-126) Units/L Troponin I (0-0.03) ng/mL B-Natriuretic Peptide (0-100) pg/mL Serum Total Protein 7.5 (6.0-8.3) g/dL Albumin 4.1 (3.5-5.0) g/dL Globulin 3.4 (2.4-3.5) g/dL Albumin/Globulin Ratio 1.2 (1.1-2.2) 03/03/17 03/03/17 Range/Units 17:15 17:15 WBC (4.3-11.1) K/mcL RBC (3.82-4.97) M/mcL Hgb (11.5-15.4) g/dL Hct (35.3-44.9) % MCV (83.0-100.0) fL MCH (28.0-33.3) pg MCHC (31.6-35.5) g/dL RDW (11.5-14.5) % Plt Count (140-400) K/mcL MPV (9.4-12.4) fL Immature Gran % (0-4) % Seg Neutrophils % % Lymphocytes % % Monocytes % % Eosinophils % % Basophils % % Neutrophils # (1.6-8.9) K/mcL Lymphocytes # (0.6-4.6) K/mcL Monocytes # (0.0-1.3) K/mcL Eosinophils # (0.0-0.6) K/mcL Basophils # (0.0-0.2) K/mcL PT (9.4-12.1) Seconds INR APTT (26.0-36.0) Seconds D-Dimer (0-500) ng/mLFEU Sodium (136-145) mEq/L Potassium (3.5-4.5) mEq/L Chloride (98-109) mEq/L Carbon Dioxide (19-29) mEq/L BUN (7-20) mg/dL Creatinine (0.57-1.11) mg/dL Est GFR ( Amer) (> 60) Est GFR (Non-Af Amer) (> 60) BUN/Creatinine Ratio (6-26) Glucose (70-99) mg/dL Calculated Osmolality (280-300) Calcium (8.6-10.8) mg/dL Total Bilirubin (0.2-1.2) mg/dL Direct Bilirubin (0.0-0.5) mg/dL Indirect Bilirubin (0.0-1.2) mg/dL AST (5-34) Units/L ALT (0-55) Units/L Alkaline Phosphatase (38-126) Units/L Troponin I 0.00 (0-0.03) ng/mL B-Natriuretic Peptide < 10 (0-100) pg/mL Serum Total Protein (6.0-8.3) g/dL Albumin (3.5-5.0) g/dL Globulin (2.4-3.5) g/dL Albumin/Globulin Ratio (1.1-2.2) - Radiology Data Radiology results reviewed: Yes I reviewed the patient's radiology results. - EKG Data EKG attestation: Yes I reviewed and interpreted this EKG. EKG shows normal: sinus rhythm Rate: normal Rhythm: NSR
[2017-03-03] MEDS ORDERED: Naloxone 0.4 MG/ML INJ IVP PRN (23:29)
[2017-03-03] MEDS ORDERED: Acetaminophen 325 MG TABLET PO PRN (23:29)
[2017-03-03] MEDS ORDERED: D5% in 0.45% NACL 1,000 ML IVC SCH (23:30)
[2017-03-03] MEDS: Ondansetron 4 MG/2 ML VIAL IVP PRN (23:57)
[2017-03-04] MEDS: *HR* Promethazine 25 MG/ML VIAL IVP PRN ×3 (01:00→17:37)
[2017-03-04] MEDS: Pantoprazole 40 MG VIAL IVP SCH ×2 (02:44→06:27)
--- NOTE | 2017-03-04 06:19 | Internal Med History&Physical ---
Date of Encounter: 03/04/17 Time of Encounter: 01:00 Assessment and Plan (1) Common bile duct stone Current visit: Yes Status: Acute Patient has abdominal pain and nausea, mild elevation in liver enzymes and direct bilirubin, MRCP and RUQ U/S shows gallstones with no e/o cholecystitis and disal CBD stones. Continue to keep NPO with IV hydration. Pain control with PRN IV Morphine and PRN antiemetics- Zofran and phenergan; patient is uncomfortable from nausea. Will consult GI for possible ERCP; (2) Biliary colic Current visit: Yes Status: Acute plan as above; (3) Pneumonia Current visit: Yes Status: Acute Chest XRay shows possible right upper lobe infiltrates. Recent Chest XRay shoed clear lung rubin; patient had been treated for Pneumonia about 2-3 months ago when admitted at [facility] for endometritis. Will start IV Levaquin and monitor closely; not requiring supplemental O2 at this time; Qualifiers: Pneumonia type: due to unspecified organism Laterality: right Lung location: upper lobe of lung Qualified Code(s): J18.1 - Lobar pneumonia, unspecified organism Internal Medicine - H&P: HPI Chief complaint: Nausea, abdominal pain Admitted From: Emergency Dept Plans for Post Hospital Care: Home History of present illness: Ms. Landin is a 21 year old female, 3 months post-, presents with c/o- sudden onset of epigastric abdominal pain. Her pain started this morning after eating a grilled chicken sandwich, sharp 8/10 pain, radiating to shoulders and upper back, associated with significant nausea, no emesis. No similar previous episodes. SHe did have cholestasis during and underwent uncomplicated induced labor 3 months ago. No diarrhea, urinary symptoms, fever/chills. No cough or shortness of breath. Past Med Surg Social Fam HX - Past Medical History Medical history: DVT, other Psychiatric history: no psych history - Past Surgical History Surgical History: other (right 1st rib excision) - Social History Smoking Status: Never smoker Smokeless Tobacco Status: No Alcohol use: none Drug use: none Occupational status: employed Current living situation: Home, With Family Activity Level: Independent ambulation Recent Out of Country Travel Within the Last 8 Weeks: No Exposure or Possible Exposure to Illness During Travel: No - Family History Mother Adopted: No Family Member Ethnicity: Non- Living Status: Still Living Hx Family Cardiac Disorders: No Hx Family Respiratory Disorders: No Hx Family Cancer: No Hx Family Autoimmune Disorders: Yes (RA) Maternal Grandfather Adopted: No Family Member Ethnicity: Non- Living Status: Still Living Hx Family Cardiac Disorders: Yes (heart disease) Hx Family Respiratory Disorders: Yes (COPD) Hx Family Cancer: No Hx Family GI Disorders: No Hx Family Endocrine Disorder: No Hx Family Neuromuscular Disorders: No Hx Family Neurologic Disorders: No Hx Family HEENT Disorders: No Hx Family Autoimmune Disorders: No Internal Medicine - H&P: Meds No Known Home Drugs 03/03/17 [History] Allergies promethazine [From Phenergan] Allergy (Verified 03/03/17 16:36) Hallucinating All Systems PM: A 10-system review of systems was performed and is negative for pertinent findings except as documented above in the HPI. - Constitutional Constitutional: no chills, no fever(s), no night sweats - EENT Eyes: no change in vision, no discharge, no pain, no photophobia Ears: no ear discharge, no ear pain, no tinnitus Nose, mouth and throat: no dysphagia, no nasal discharge, no neck pain, no sore throat - Cardiovascular Cardiovascular ROS IM: no chest pain, no diaphoresis, no dyspnea, no lightheadedness, no palpitations, no syncope - Respiratory Respiratory: no cough, no dyspnea, no wheezing, no excessive phlegm production - Gastrointestinal Gastrointestinal: abdominal pain, nausea, vomiting - Genitourinary Genitourinary: no change in urinary stream, no dysuria, no flank pain, no hematuria - Musculoskeletal Musculoskeletal ROS IM: no numbness, no tingling - Integumentary Integumentary IM: no rash, no unusual bruising - Neurological Neurological ROS: no confusion, no convulsions, no focal weakness, no numbness, no tingling, no tremor(s) - Hematologic/Lymphatic Hematologic/Lymphatic: no easy bruising - Constitutional Vitals: Temp Pulse Resp BP Pulse Ox 97.9 F 68 18 110/69 98 03/04/17 03:11 03/04/17 03:11 03/04/17 03:11 03/04/17 03:11 03/04/17 03:11 General appearance: Present: mild distress, A&O X 3, answers questions appropriately - Respiratory Respiratory exam: Present: CTAB. Absent: accessory muscle use, rales, rhonchi, wheezes - Cardiovascular Cardiovascular exam: Present: RRR, +S1, +S2. Absent: diastolic murmur, gallop, rubs, systolic murmur - GI/Abdominal GI/Abdominal exam: Present: normal bowel sounds, soft (epigastric tenderness), no peritoneal signs. Absent: distended, tenderness - Extremities Exam Extremities exam: Present: full ROM, warm, radial pulses palpable and symetrical. Absent: calf tenderness, cyanotic, pedal edema - Neurological Exam Neurological exam: Present: CN II-XII intact, oriented X3, no focal deficits. Absent: pronater drift, facial droop, speech deficit - Skin Skin exam: Present: dry, intact Internal Med - H&P Results - Labs CBC & Chem 7: 03/03/17 17:15 03/03/17 17:15
[2017-03-04] MEDS: Levofloxacin 500 MG/100 ML 500 MG/100 ML BAG IVPB SCH (06:29)
[2017-03-04 06:45] LABS: Basophils % 0.3 %; Eosinophils % 0.3 %; Hematocrit 38.4 % (35.3-44.9); Hemoglobin 12.8 g/dL (11.5-15.4); Immature Granulocytes % 0.3 % (0-4); Lymphocytes # 1.3 K/mcL (0.6-4.6); Lymphocytes % 17.7 %; Mean Corpuscular HGB Conc 33.3 g/dL (31.6-35.5); Mean Corpuscular Hemoglobin 28.6 pg (28.0-33.3); Mean Corpuscular Volume 85.9 fL (83.0-100.0); Mean Platelet Volume 9.8 fL (9.4-12.4); Monocytes # 0.5 K/mcL (0.0-1.3); Neutrophils # 5.6 K/mcL (1.6-8.9); Platelet Count 370 K/mcL (140-400); Red Blood Count 4.47 M/mcL (3.82-4.97); Red Cell Distribution Width 12.5 % (11.5-14.5); Segmented Neutrophils % 74.4 %
[2017-03-04 07:19] LABS: Alanine Aminotransferase 184 Units/L (0-55); Albumin 3.7 g/dL (3.5-5.0); Albumin/Globulin Ratio 1.1 (1.1-2.2); Alkaline Phosphatase 111 Units/L (38-126); Aspartate Amino Transferase 154 Units/L (5-34); BUN/Creatinine Ratio 11 (6-26); Blood Urea Nitrogen 10 mg/dL (7-20); Carbon Dioxide 27 mEq/L (19-29); Chloride 102 mEq/L (98-109); Chol/HDL Ratio 2.8 (0-4.9); Cholesterol 154 mg/dL (< 200); Globulin 3.3 g/dL (2.4-3.5); Glucose 115 mg/dL (70-99); HDL Cholesterol 56 mg/dL (40-59); LDL Cholesterol,Calculated 81 mg/dL (0-99); Magnesium 2.3 mg/dL (1.6-2.6); Osmolality,Calculated 288 (280-300); Phosphorous 5.7 mg/dL (2.3-4.7); Sodium 139 mEq/L (136-145); Triglycerides 83 mg/dL (< 150); eGFR For African Americans > 60 (> 60); eGFR For Non-African Americans > 60 (> 60)
[2017-03-04] MEDS: *HR* OxyCODONE Immed Rel 5 MG TABLET PO PRN ×2 (10:02→21:24)
[2017-03-04] MEDS ORDERED: Lidocaine -MPF 4% 5 ML AMPUL TP ONE (11:05)
[2017-03-04] MEDS ORDERED: Lidocaine -MPF 2% 5 ML VIAL INFILT ONE (11:05)
[2017-03-04] MEDS ORDERED: *HR* Propofol 200 MG/20 ML VIAL IVP ONE (11:05)
[2017-03-04] MEDS ORDERED: Ondansetron 4 MG/2 ML VIAL IVP ONE (11:05)
--- NOTE | 2017-03-04 12:17 | Anesthesia Evaluation PreOp ---
Date of Encounter: 03/04/17 Time of Encounter: 14:01 - Past History Planned Operation: ERCP Cardiac History: Denies any Significant Hx Pulmonary History: Denies Any Significant HX ASSISTANT COMMUNITY MANAGER History: Denies Any Significant HX Other Medical History: Other (H/O DVT) Anesthesia History: No Prior Anesthetic Complications, Past Anesthesia Test: Negative (03/04/2017) Alcohol Use: none Drug use: none Medications and Allergies No Known Home Drugs 03/03/17 [History] Allergies promethazine [From Phenergan] Allergy (Verified 03/03/17 16:36) Hallucinating - Meds/Allergy Pre-op Review Medications Reviewed: Yes Allergies Reviewed: Yes Beta Blockers on Current Med List: No Anesthesia Results - Labs 03/04/17 05:58 03/04/17 05:58 - Imaging EKG: report reviewed (11/27/2016 ST) Additional studies: 01/26/2017 Echo LVEF 60% valvular function not assessed on this study Anesthesia Exam Vital Signs/O2 Sat, Most Current Temp Pulse Resp BP Pulse Ox 97.7 F 58 16 104/64 98 03/04/17 11:14 03/04/17 11:14 03/04/17 11:14 03/04/17 11:14 03/04/17 11:14 Height: 5'4''/1.63 m Weight: 190 lbs/86.183 kg NPO (# of Hours): 8 Pain Scale: 0 Pain Scale Used: Numeric (1 - 10) - HEENT Pupil (Motor): EOMI Mallampati: II Teeth: Normal Oral Opening: Greater than 3 - ASSISTANT COMMUNITY MANAGER LOC: Oriented ASSISTANT COMMUNITY MANAGER Motor: Normal RUE, Normal LUE, Normal RLE, Normal LLE, Normal Face ASSISTANT COMMUNITY MANAGER Sensory: Normal: RUE, LUE, RLE, LLE, Face - Cardiac Rhythm: Regular Murmur: None - Pulmonary Breath Sounds: bilateral Clear Respiratory Effort: Symmetrical Anesthesia Assess/Plan ASA Score: 2 Modified Alexander Scale for Level of Consciousness: Cooperative, oriented, and tranquil Anesthetic Plan: General Monitoring Plan: Standard Monitors Recovery Plan: PACU
--- NOTE | 2017-03-04 14:04 | Electrocardiograph Report ---
[place] [id number] Test Date: 2017-03-03 Pat Name: Leoncio Landin Department: 103 Room: 3B Gender: F [employer] Rol[employer] Printing: : 1995 Requested By: Guerrero Sneed Order Number: [id number] Reading MD: Gael Diaz MD Measurements Intervals Mims Rate: 89 P: 45 RI: 169 QRS: 46 QRSD: 90 T: 27 QT: 352 QTc: 399 Interpretive Statements SINUS RHYTHM Electronically Signed On 03-04-2017 14:02:18 EDT by Gael Diaz MD
--- NOTE | 2017-03-04 14:25 | Gastroenterology Consult Note ---
<Gael Good - Last Filed: 03/04/17 14:23> Date of Encounter: 03/04/17 Time of Encounter: 11:50 - Assessment and plan (1) Common bile duct stone Current Visit: Yes Status: Acute Assessment and plan: MRCP and RUQ US consistent with choledocholithiasis. Plan for ERCP today. Patient may need gallbladder surgery. (2) Elevated LFTs Current Visit: Yes Status: Acute Assessment and plan: Secondary to choledocholithiasis. (3) Pneumonia Current Visit: Yes Status: Acute Assessment and plan: Management per primary team. Qualifiers: Pneumonia type: due to unspecified organism Laterality: right Lung location: upper lobe of lung Qualified Code(s): J18.1 - Lobar pneumonia, unspecified organism - Time Spent With Patient Total time spent is greater than 50% in coordination of care (as documented) at patient's floor/unit and/or counseling patient: GI History of Present Illness - Data of Consult Patient: new to practice Consult date: 03/04/17 Requesting Physician: Renetta Gallagher - Consult Narrative Reason for consult: CBD stone History of present illness: Ms. Landin is a 21 year old female with PMHx of DVT who is 3 months who presented with sudden onset of epigastric abdominal pain that started after eating a grilled chicken sandwich. The pain radiated to her shoulders and upper back. She did report significant nausea and denies any vomiting. No fever, chills, diarrhea, constipation, melena, or hematochezia. MRCP and RUQ US consistent with choledocholithiasis. Procedures: None NSAIDs: None Anticoagulation: None Past Med Surg Social Fam HX - Past Medical History Medical history: DVT, other Psychiatric history: no psych history - Past Surgical History Surgical History: other - Social History Smoking Status: Never smoker Smokeless Tobacco Status: No Alcohol use: none Drug use: none - Family History Mother Adopted: No Family Member Ethnicity: Non- Living Status: Still Living Hx Family Cardiac Disorders: No Hx Family Respiratory Disorders: No Hx Family Cancer: No Hx Family Autoimmune Disorders: Yes (RA) Maternal Grandfather Adopted: No Family Member Ethnicity: Non- Living Status: Still Living Hx Family Cardiac Disorders: Yes (heart disease) Hx Family Respiratory Disorders: Yes (COPD) Hx Family Cancer: No Hx Family GI Disorders: No Hx Family Endocrine Disorder: No Hx Family Neuromuscular Disorders: No Hx Family Neurologic Disorders: No Hx Family HEENT Disorders: No Hx Family Autoimmune Disorders: No - Gastrointestinal Gastrointestinal: Present: as per HPI - Constitutional Constitutional: as per HPI - EENT Eyes: as per HPI Ears: Present: as per HPI Nose, mouth and throat: Present: as per HPI - Cardiovascular Cardiovascular ROS: Present: as per HPI - Respiratory Respiratory IM: Present: as per HPI - Genitourinary Genitourinary: Absent: change in color, Urinary frequency - Neurological ROS Neurological GI: Present: as per HPI - Hematologic/Lymphatic Hematologic/Lymphatic pediatric: Present: as per HPI - Musculoskeletal Musculoskeletal ROS GI: Present: as per HPI - Integumentary Integumentary GI: Present: as per HPI - Psychiatric ROS Psychiatric GI: Present: as per HPI - Endocrine Endocrine IM: Present: as per HPI - Constitutional Vitals: Temp Pulse Resp BP Pulse Ox 97.7 F 69 16 113/64 100 03/04/17 13:49 03/04/17 13:49 03/04/17 13:49 03/04/17 13:49 03/04/17 13:49 General appearance: Present: cooperative, A&O X 3, no acute distress, answers questions appropriately - Head Head exam: Present: atraumatic, normocephalic - Eye Eye exam: Present: normal appearance, sclera anicteric - ENT ENT exam: Present: mucous membranes dry - Neck Neck exam general surgery: Present: normal inspection, trachea midline - Respiratory Respiratory exam: Present: CTAB. Absent: rales, rhonchi, wheezes - Cardiovascular Cardiovascular exam: Present: RRR, +S1, +S2 - GI/Abdominal GI/Abdominal exam: Present: soft, tenderness (upper abdominal tenderness), no peritoneal signs. Absent: distended, firm, guarding - Rectal Rectal exam: Present: deferred - Extremities Exam Extremities exam: Present: warm - Neurological Exam Neurological exam: Present: no focal deficits - Psychiatric Psychiatric exam: Present: normal affect, normal mood - Skin Skin exam: Present: dry, intact, normal color, warm Results - Labs CBC & Chem 7: 03/04/17 05:58 03/04/17 05:58 Labs: Last Result Calcium 10.0 mg/dL (8.6-10.8) 03/04/17 05:58 Troponin I 0.00 ng/mL (0-0.03) 03/03/17 17:15 Triglycerides 83 mg/dL (< 150) 03/04/17 05:58 Entire Visit Hgb 12.8 g/dL (11.5-15.4) 03/04/17 05:58 Hct 38.4 % (35.3-44.9) 03/04/17 05:58 PT 11.7 Seconds (9.4-12.1) 03/03/17 17:15 Total Bilirubin 3.0 mg/dL (0.2-1.2) H D 03/04/17 05:58 AST 154 Units/L (5-34) H 03/04/17 05:58 ALT 184 Units/L (0-55) H 03/04/17 05:58 - ABG ABG results: PT/INR, D-dimer PT 11.7 Seconds (9.4-12.1) 03/03/17 17:15 D-Dimer 280 ng/mLFEU (0-500) 03/03/17 17:15 Consult Discharge Plan - Plan Instructions: Endoscopic Retrograde Cholangiopancreatography (DC) Referrals: Rajni Mcgraw SLAB INSPECTOR [Primary Care Provider] - <Kika Garcia - Last Filed: 03/04/17 17:41> Date of Encounter: 03/04/17 Time of Encounter: 13:00 - Time Spent With Patient Total time spent is greater than 50% in coordination of care (as documented) at patient's floor/unit and/or counseling patient: GI History of Present Illness - Data of Consult Requesting Physician: Renetta Gallagher - Consult Narrative History of present illness: Ms. Landin is a 21 year old female - Constitutional Vitals: Temp Pulse Resp BP Pulse Ox 97.5 F L 69 16 109/72 100 03/04/17 15:57 03/04/17 15:57 03/04/17 15:57 03/04/17 15:57 03/04/17 15:57 Results - Labs CBC & Chem 7: 03/04/17 05:58 03/04/17 05:58 Labs: Last Result Calcium 10.0 mg/dL (8.6-10.8) 05/18/17 05:58 Troponin I 0.00 ng/mL (0-0.03) 03/03/17 17:15 Triglycerides 83 mg/dL (< 150) 03/04/17 05:58 Entire Visit Hgb 12.8 g/dL (11.5-15.4) 03/04/17 05:58 Hct 38.4 % (35.3-44.9) 03/04/17 05:58 PT 11.7 Seconds (9.4-12.1) 03/03/17 17:15 Total Bilirubin 3.0 mg/dL (0.2-1.2) H D 03/04/17 05:58 AST 154 Units/L (5-34) H 03/04/17 05:58 ALT 184 Units/L (0-55) H 03/04/17 05:58 - ABG ABG results: PT/INR, D-dimer PT 11.7 Seconds (9.4-12.1) 03/03/17 17:15 D-Dimer 280 ng/mLFEU (0-500) 03/03/17 17:15 - Impressions Impressions Cath/Invasive Procedure 03/04/17 14:35 IMPRESSION: Please see surgical report for complete details with regards to ERCP procedure. D/ / Coy Chang MD / Coy Chang MD Interpreting Provider: Coy Chang MD - Attending Attestation I examined this patient and my medical decision-making was reviewed with the DIRECTOR TRADE/PA/Advanced Practice Nurse/Resident Physician. I agree with the documented findings, disposition and treatment plan as described except to the extent set forth below.
[2017-03-04] MEDS ORDERED: *HR* FentaNYL (PF) 100 MCG/2 ML VIAL ONE (14:26)
[2017-03-04] MEDS ORDERED: *HR* Midazolam HCl 2 MG/2 ML VIAL ONE (14:27)
[2017-03-04] MEDS ORDERED: Indomethacin 50 MG SUPP.RECT RC ONE (15:16)
--- NOTE | 2017-03-04 15:27 | Anesthesia Evaluation Post Op ---
Date of Encounter: 03/04/17 Time of Encounter: 15:25 - Vital Signs Vital Signs: Vital Signs/O2 Sat/Glucose, Most Recent Temp Pulse Resp BP Pulse Ox 97.8 F 81 12 125/73 100 03/04/17 15:22 03/04/17 15:22 03/04/17 15:22 03/04/17 15:22 03/04/17 15:22 - Lungs Lungs: Clear Ascult./Percussion - Cardiovascular Regular Rate, Baseline Rhythm - Mental Status Mental Status: Asleep with brisk response to light stimulation - Pain Pain Scale: 0 Pain Scale used: Numeric (1 - 10) - Nausea Vomiting Nausea Vomiting: Not Present - Hydration Hydration: NPO Notes: 03/04/17 15:26 naac - Discharge PostOp Status: Transfer Patient to floor
[2017-03-04] MEDS: Ondansetron 4 MG/2 ML VIAL IVP PRN (21:25)
[2017-03-05] MEDS: *HR* Morphine 2 MG/ML SYRINGE IVP PRN ×3 (01:02→23:53)
[2017-03-05] MEDS: *HR* Promethazine 25 MG/ML VIAL IVP PRN ×2 (01:07→14:43)
[2017-03-05 05:42] LABS: Hematocrit 39.7 % (35.3-44.9); Hemoglobin 12.9 g/dL (11.5-15.4); Immature Granulocytes % 0.5 % (0-4); Lymphocytes # 0.6 K/mcL (0.6-4.6); Lymphocytes % 7.5 %; Mean Corpuscular HGB Conc 32.5 g/dL (31.6-35.5); Mean Corpuscular Volume 86.3 fL (83.0-100.0); Mean Platelet Volume 9.7 fL (9.4-12.4); Monocytes # 0.2 K/mcL (0.0-1.3); Monocytes % 2.6 %; Platelet Count 357 K/mcL (140-400); Red Cell Distribution Width 12.3 % (11.5-14.5); Segmented Neutrophils % 89.4 %
[2017-03-05 05:53] LABS: Amylase 91 Units/L (25-125); Lipase 93 Units/L (8-78)
[2017-03-05 05:55] LABS: Alanine Aminotransferase 399 Units/L (0-55); Albumin 3.6 g/dL (3.5-5.0); Albumin/Globulin Ratio 1.1 (1.1-2.2); Alkaline Phosphatase 138 Units/L (38-126); Aspartate Amino Transferase 190 Units/L (5-34); BUN/Creatinine Ratio 13 (6-26); Bilirubin,Direct 0.8 mg/dL (0.0-0.5); Bilirubin,Indirect 1.5 mg/dL (0.0-1.2); Bilirubin,Total 2.3 mg/dL (0.2-1.2); Blood Urea Nitrogen 11 mg/dL (7-20); Calcium 9.2 mg/dL (8.6-10.8); Carbon Dioxide 23 mEq/L (19-29); Chloride 107 mEq/L (98-109); Globulin 3.3 g/dL (2.4-3.5); Glucose 139 mg/dL (70-99); Magnesium 2.1 mg/dL (1.6-2.6); Osmolality,Calculated 294 (280-300); Potassium 4.2 mEq/L (3.5-4.5); Sodium 141 mEq/L (136-145); Total Protein 6.9 g/dL (6.0-8.3); eGFR For African Americans > 60 (> 60); eGFR For Non-African Americans > 60 (> 60)
[2017-03-05] MEDS: Pantoprazole 40 MG VIAL IVP SCH (06:05)
[2017-03-05] MEDS: Levofloxacin 500 MG/100 ML 500 MG/100 ML BAG IVPB SCH (07:58)
[2017-03-05] MEDS: *HR* OxyCODONE Immed Rel 5 MG TABLET PO PRN ×3 (08:00→21:22)
[2017-03-05] MEDS: Ondansetron 4 MG/2 ML VIAL IVP PRN (08:01)
--- NOTE | 2017-03-05 18:50 | Internal Med Progress Note ---
Date of Encounter: 03/05/17 Time of Encounter: 10:30 - Assessment and plan (1) Choledocholithiasis Current Visit: Yes Status: Acute Assessment and plan: patient presented with abdominal pain. us gallbladder showed calculi within the distal CBD, cholelithiasis. MRI abdomen confirmed choledocolithiasis and cholelithiasis. hepatic steatosis. resolved. patient underwent ERCP with removal of CBD stone by sphinterectomy and balloon extraction on 03/04. (2) Gallbladder stone with nonacute cholecystitis Current Visit: Yes Status: Acute Assessment and plan: appreciate surgery input. plan for lap mica tomorrow. pain control. (3) Elevated LFTs Current Visit: Yes Status: Acute Assessment and plan: secondary to CBD stone. close monitor. (4) Pneumonia Current Visit: Yes Status: Acute Assessment and plan: CXR shows RUL pneumonia. levaquin for 5 days. Qualifiers: Pneumonia type: due to unspecified organism Laterality: right Lung location: upper lobe of lung Qualified Code(s): J18.1 - Lobar pneumonia, unspecified organism - Subjective Interval history: patient reports mild diffuse abdominal pain. - Constitutional Vitals: Temp Pulse Resp BP Pulse Ox 98.1 F 66 17 106/66 100 03/05/17 18:40 03/05/17 18:40 03/05/17 18:40 03/05/17 18:40 03/05/17 18:40 General appearance: Present: cooperative, A&O X 3, pleasant, no acute distress, answers questions appropriately - Respiratory Respiratory exam: Present: CTAB - Cardiovascular Cardiovascular exam: Present: RRR - GI/Abdominal GI/Abdominal exam: Present: normal bowel sounds, soft, tenderness (mild diffuse tenderness). Absent: distended - Extremities Exam Extremities exam: Absent: pedal edema - Back Exam Back exam: Absent: CVA tenderness (L), CVA tenderness (R) - Neurological Exam Neurological exam: Present: alert, oriented X3, no focal deficits, strengths equal and symetr throughout. Absent: facial droop, speech deficit - Skin Skin exam: Absent: rash Internal Medicine: Result - Labs CBC & Chem 7: 03/05/17 04:54 03/05/17 04:54 Labs: Short CBC 03/05/17 Range/Units 04:54 WBC 7.8 (4.3-11.1) K/mcL Hgb 12.9 (11.5-15.4) g/dL Hct 39.7 (35.3-44.9) % Plt Count 357 (140-400) K/mcL Neutrophils # 7.0 (1.6-8.9) K/mcL BMP 03/05/17 04:54 Sodium 141 Potassium 4.2 Chloride 107 Carbon Dioxide 23 BUN 11 Creatinine 0.86 Glucose 139 H Calcium 9.2 Liver Function 03/05/17 Range/Units 04:54 Total Bilirubin 2.3 H (0.2-1.2) mg/dL Direct Bilirubin 0.8 H (0.0-0.5) mg/dL AST 190 H (5-34) Units/L ALT 399 H (0-55) Units/L Alkaline Phosphatase 138 H (38-126) Units/L Albumin 3.6 (3.5-5.0) g/dL - ABG Interpretation ABG results: PT/INR, D-dimer PT 11.7 Seconds (9.4-12.1) 03/03/17 17:15 D-Dimer 280 ng/mLFEU (0-500) 03/03/17 17:15 Consult Discharge Plan - Plan Instructions: Endoscopic Retrograde Cholangiopancreatography (DC) Referrals: Rajni Mcgraw CNP [Primary Care Provider] - 03/09/17 2:00 pm
--- NOTE | 2017-03-05 19:46 | General Surgery Consult Note ---
Date of Encounter: 03/05/17 Time of Encounter: 13:10 History of Present Illness Reason for consult: gallstones (choledocholithiasis) Requesting physician: Fabienne Robin History of present illness: The 21-year-old female, approximately 3 months referred to surgical services following ERCP with choledocholithotomy. The patient presented with abdominal pain, nausea, jaundice and abnormal LFTs, 03/04/17. Ultrasound of the gallbladder showed gallstones with common bile duct measuring approximate 7 mm in diameter. 4 mm echogenic intraluminal filling defect within the distal common bile duct was also noted. Subsequent MRI confirmed the presence of choledocholithiasis. ERCP with choledocholithotomy was completed late 2016 followed by surgical consultation. The patient was seen and evaluated that evening but was still partially sedated from the ERCP. The following morning, 03/05/17, patient was feeling much better. LFTs had improved: Bilirubin had improved from 3.0-2.3, AST at increased to 190, ALT at increased to 399 and alkaline phosphatase 138. Amylase 91, lipase 93. The findings were consistent with post ERCP pancreatitis for which I recommended surgery be deferred until this acute response could subside. Past medical history: Pneumonia approximately 2 months ago Surgical history: right first rib resection Allergies promethazine witExposure causing hallucinosis Medications: Patient currently on no meds Social history: , 3 months ; patient denies any alcohol, illicit drug use or tobacco use/never smoker Physical examination revealed an age-appropriate female in no acute distress. Skin was warm, with no obvious jaundice The patient has been afebrile, 97.8, pulse 68, respirations 14, blood pressure 99/54 to 103/65. SPO2 on room air 98% Lungs: Clear, no obvious abdominal pain with deep inspiration Cardiac: Regular rate, no appreciable murmur Abdomen: Soft with minimal right upper quadrant tenderness. Active bowel sounds. Extremities without clubbing, cyanosis, or edema Impression: A 1-year-old female with abdominal pain, hyperbilirubinemia and abnormal LFTs due to cholelithiasis and choledocholithiasis. Patient is s/p ERCP with choledocholithotomy, 03/04/17. The patient is feeling better but demonstrates post ERCP pancreatitis. Cholecystectomy will be deferred until those acute changes subside. The patient is a reasonable candidate for laparoscopic cholecystectomy which will be scheduled in the next day or 2. She is aware that an open cholecystectomy may become necessary. Risks of surgery include hemorrhage, infection, intra-abdominal abscess, bile leak, Injury to adjacent ducts, vessels, organs, or bowel. Postcholecystectomy diarrhea was also discussed. Mother was present during this discussion. Plan: Allow clear liquids until 12 midnight then nothing by mouth except for medications repeat labs in AM including amylase and lipase. if acceptable improvement - proceed with laparoscopic cholecystectomy possible open cholecystectomy in the a.m. Past Med Surg Social Fam HX - Past Medical History Medical history: DVT, other Psychiatric history: no psych history - Past Surgical History Surgical History: other - Social History Smoking Status: Never smoker Smokeless Tobacco Status: No Alcohol use: none Drug use: none - Family History Mother Adopted: No Family Member Ethnicity: Non- Living Status: Still Living Hx Family Cardiac Disorders: No Hx Family Respiratory Disorders: No Hx Family Cancer: No Hx Family Autoimmune Disorders: Yes (RA) Maternal Grandfather Adopted: No Family Member Ethnicity: Non- Living Status: Still Living Hx Family Cardiac Disorders: Yes (heart disease) Hx Family Respiratory Disorders: Yes (COPD) Hx Family Cancer: No Hx Family GI Disorders: No Hx Family Endocrine Disorder: No Hx Family Neuromuscular Disorders: No Hx Family Neurologic Disorders: No Hx Family HEENT Disorders: No Hx Family Autoimmune Disorders: No Medications and Allergies No Known Home Drugs 03/03/17 [History] Allergies promethazine [From Phenergan] Allergy (Verified 03/03/17 16:36) Hallucinating Review of Systems All systems PM: A 10-system review of systems was performed and is negative for pertinent findings except as documented above in the HPI. General Surgery Exam Initial Vital Signs Temp Pulse Resp BP Pulse Ox 98.1 F 84 24 110/68 100 03/03/17 16:28 03/03/17 16:28 03/03/17 16:28 03/03/17 16:28 03/03/17 16:28 Exam Initial Vital Signs Temp Pulse Resp BP Pulse Ox 98.1 F 84 24 110/68 100 03/03/17 16:28 03/03/17 16:28 03/03/17 16:28 03/03/17 16:28 03/03/17 16:28 Results - Labs 03/05/17 04:54 03/05/17 04:54 Abnormal lab results Glucose 139 mg/dL (70-99) H 03/05/17 04:54 Phosphorus 5.7 mg/dL (2.3-4.7) H 03/04/17 05:58 Total Bilirubin 2.3 mg/dL (0.2-1.2) H 03/05/17 04:54 Direct Bilirubin 0.8 mg/dL (0.0-0.5) H 03/05/17 04:54 Indirect Bilirubin 1.5 mg/dL (0.0-1.2) H 03/05/17 04:54 AST 190 Units/L (5-34) H 03/05/17 04:54 ALT 399 Units/L (0-55) H 03/05/17 04:54 Alkaline Phosphatase 138 Units/L (38-126) H 03/05/17 04:54 Lipase 93 Units/L (8-78) H 03/05/17 04:54 Diabetes panel 03/05/17 Range/Units 04:54 Sodium 141 (136-145) mEq/L Potassium 4.2 (3.5-4.5) mEq/L Chloride 107 (98-109) mEq/L Carbon Dioxide 23 (19-29) mEq/L BUN 11 (7-20) mg/dL Creatinine 0.86 (0.57-1.11) mg/dL Glucose 139 H (70-99) mg/dL Calcium 9.2 (8.6-10.8) mg/dL AST 190 H (5-34) Units/L ALT 399 H (0-55) Units/L Alkaline Phosphatase 138 H (38-126) Units/L Albumin 3.6 (3.5-5.0) g/dL Calcium panel 03/05/17 Range/Units 04:54 Calcium 9.2 (8.6-10.8) mg/dL Albumin 3.6 (3.5-5.0) g/dL Pituitary panel 03/05/17 Range/Units 04:54 Sodium 141 (136-145) mEq/L Potassium 4.2 (3.5-4.5) mEq/L Chloride 107 (98-109) mEq/L Carbon Dioxide 23 (19-29) mEq/L BUN 11 (7-20) mg/dL Creatinine 0.86 (0.57-1.11) mg/dL Glucose 139 H (70-99) mg/dL Calcium 9.2 (8.6-10.8) mg/dL Adrenal panel 03/05/17 Range/Units 04:54 Sodium 141 (136-145) mEq/L Potassium 4.2 (3.5-4.5) mEq/L Chloride 107 (98-109) mEq/L Carbon Dioxide 23 (19-29) mEq/L BUN 11 (7-20) mg/dL Creatinine 0.86 (0.57-1.11) mg/dL Glucose 139 H (70-99) mg/dL Calcium 9.2 (8.6-10.8) mg/dL Total Bilirubin 2.3 H (0.2-1.2) mg/dL AST 190 H (5-34) Units/L ALT 399 H (0-55) Units/L Alkaline Phosphatase 138 H (38-126) Units/L Albumin 3.6 (3.5-5.0) g/dL All other labs normal. Consult Discharge Plan - Plan Instructions: Endoscopic Retrograde Cholangiopancreatography (DC) Referrals: Rajni Mcgraw CNP [Primary Care Provider] - 03/09/17 2:00 pm
[2017-03-06] MEDS: *HR* Promethazine 25 MG/ML VIAL IVP PRN
[2017-03-06] MEDS: *HR* OxyCODONE Immed Rel 5 MG TABLET PO PRN (04:05)
[2017-03-06 04:12] LABS: Basophils % 0.3 %; Eosinophils # 0.1 K/mcL (0.0-0.6); Eosinophils % 0.8 %; Hematocrit 37.1 % (35.3-44.9); Immature Granulocytes % 0.3 % (0-4); Lymphocytes # 2.8 K/mcL (0.6-4.6); Lymphocytes % 35.4 %; Mean Corpuscular HGB Conc 32.3 g/dL (31.6-35.5); Mean Corpuscular Hemoglobin 28.5 pg (28.0-33.3); Mean Corpuscular Volume 88.1 fL (83.0-100.0); Mean Platelet Volume 9.7 fL (9.4-12.4); Monocytes # 0.5 K/mcL (0.0-1.3); Monocytes % 6.1 %; Neutrophils # 4.5 K/mcL (1.6-8.9); Platelet Count 323 K/mcL (140-400); Red Blood Count 4.21 M/mcL (3.82-4.97); Red Cell Distribution Width 12.8 % (11.5-14.5); Segmented Neutrophils % 57.1 %
[2017-03-06 04:40] LABS: Alanine Aminotransferase 266 Units/L (0-55); Albumin 3.5 g/dL (3.5-5.0); Albumin/Globulin Ratio 1.2 (1.1-2.2); Alkaline Phosphatase 118 Units/L (38-126); Amylase 46 Units/L (25-125); Aspartate Amino Transferase 67 Units/L (5-34); BUN/Creatinine Ratio 11 (6-26); Bilirubin,Direct 0.5 mg/dL (0.0-0.5); Bilirubin,Indirect 0.8 mg/dL (0.0-1.2); Bilirubin,Total 1.3 mg/dL (0.2-1.2); Blood Urea Nitrogen 10 mg/dL (7-20); Calcium 9.2 mg/dL (8.6-10.8); Carbon Dioxide 27 mEq/L (19-29); Chloride 108 mEq/L (98-109); Globulin 2.9 g/dL (2.4-3.5); Glucose 98 mg/dL (70-99); Lipase 30 Units/L (8-78); Osmolality,Calculated 297 (280-300); Potassium 3.7 mEq/L (3.5-4.5); Sodium 144 mEq/L (136-145); Total Protein 6.4 g/dL (6.0-8.3); eGFR For African Americans > 60 (> 60); eGFR For Non-African Americans > 60 (> 60)
[2017-03-06] MEDS: Pantoprazole 40 MG VIAL IVP SCH (05:52)
--- NOTE | 2017-03-06 07:29 | Anesthesia Evaluation PreOp ---
Date of Encounter: 03/06/17 Time of Encounter: 08:29 - Past History Planned Operation: Cholecystectomy Cardiac History: Denies any Significant Hx Pulmonary History: Other (currently with a pneumonia -- breathing is not labored and patient is taking levaquin currently) MAGAZINE DESIGNER History: Denies Any Significant HX Other Medical History: Other (hx DVT) Anesthesia History: No Prior Anesthetic Complications, Past Anesthesia (ERCP) Alcohol Use: none Drug use: none Medications and Allergies No Known Home Drugs 03/03/17 [History] Allergies promethazine [From Phenergan] Allergy (Verified 03/03/17 16:36) Hallucinating - Meds/Allergy Pre-op Review Medications Reviewed: Yes Allergies Reviewed: Yes Beta Blockers on Current Med List: No Anesthesia Results - Labs 03/06/17 03:45 03/06/17 03:45 Anesthesia Exam Last Vital Signs Temp 98.1 F 03/05/17 18:40 Pulse 66 03/05/17 18:40 Resp 17 03/05/17 18:40 BP 106/66 03/05/17 18:40 Pulse Ox 100 03/05/17 21:12 Weight: 92 kg NPO (# of Hours): >> 8 hrs - HEENT Pupil (Motor): Pupils equal, EOMI Mallampati: II Teeth: Normal Oral Opening: Greater than 3 - MAGAZINE DESIGNER LOC: Oriented MAGAZINE DESIGNER Motor: Normal RUE, Normal LUE, Normal RLE, Normal LLE, Normal Face - Cardiac Rhythm: Regular Murmur: None - Pulmonary Breath Sounds: bilateral Clear Respiratory Effort: Symmetrical Anesthesia Assess/Plan ASA Score: 3 Modified Alexander Scale for Level of Consciousness: Cooperative, oriented, and tranquil Anesthetic Plan: General Monitoring Plan: Standard Monitors Recovery Plan: PACU
[2017-03-06] MEDS ORDERED: Propofol 500 MG/50 ML INFUS..BTL ONE (08:35)
[2017-03-06] MEDS ORDERED: Lidocaine -MPF 2% 2 ML VIAL ONE (08:35)
[2017-03-06] MEDS ORDERED: *HR* Succinylcholine 200 MG/10 ML VIAL IVP ONE (08:35)
[2017-03-06] MEDS ORDERED: Dexamethasone 4 MG/ML VIAL ONE (08:35)
[2017-03-06] MEDS ORDERED: Ondansetron 4 MG/2 ML VIAL ONE (08:35)
[2017-03-06] MEDS ORDERED: *HR* Rocuronium Bromide 50 MG/5 ML VIAL ONE (08:36)
[2017-03-06] MEDS ORDERED: Bupivacaine/EPI 1:200k 0.25%PF 30 ML VIAL ONE (08:37)
[2017-03-06] MEDS ORDERED: *HR* FentaNYL (PF) 100 MCG/2 ML VIAL ONE (08:37)
[2017-03-06] MEDS ORDERED: *HR* Midazolam HCl 2 MG/2 ML VIAL ONE (08:37)
[2017-03-06] MEDS ORDERED: CefOXitin 2,000 MG VIAL IVPB ONE (08:40)
[2017-03-06] MEDS ORDERED: Neostigmine Methylsulfate 3 MG/3 ML SYRINGE ONE (08:42)
[2017-03-06] MEDS ORDERED: Ketorolac 30 MG/ML VIAL ONE (09:50)
[2017-03-06] MEDS ORDERED: *HR* HYDROmorphone (PF) 1 MG/ML SYRINGE ONE (10:05)
[2017-03-06] MEDS: *HR* HYDROmorphone (PF) 1 MG/ML SYRINGE IVP PRN ×4 (10:07→22:55)
--- NOTE | 2017-03-06 10:07 | Operative Note ---
Date of procedure: 03/06/17 Pre-op diagnosis: Cholecystitis, cholelithiasis, choledocholithiasis Post-op diagnosis: same Procedure: Laparoscopic cholecystectomy Complications: None apparent Anesthesia: GETA Local Anesthetics: 0.25% Sensorcaine HCL with Epinephrine 1:200,000 SubQ (cc) ( 17 mL) Surgeon: Terrence Morrison Estimated blood loss (cc): 2 IV fluids (cc): 700 Specimen: gallbladde Condition: stable Disposition: PACU Procedure in Detail: The patient was brought to the operating room where she was placed supine upon the operating table. The patient was appropriately identified as to person and procedure. The accuracy of this information was confirmed by the procedure team. Patient was intubated and anesthetized under the supervision of . The abdomen was prepped and draped in the usual sterile fashion. Several milliliters of 0.25% bupivacaine with 1-200,000 units epinephrine was infiltrated into the infraumbilical skin. A small transverse incision was made , dissection was carried to the fascia. Additional bupivacaine with epinephrine was infiltrated into the fascia. The fascia was then grasped, elevated, and incised. An 11 mm Xcel Port was established. The rigid laparoscope was placed within the obturator to visualize passage through the layers of the anterior abdominal wall. When the abdomen was accessed, the obturator was replaced by the rigid laparoscope, the abdomen was insufflated with gaseous carbon dioxide. There was no obvious visible injury from established in the port. Under direct visualization 3 additional ports were placed along the right costal margin in the subxiphoid, midclavicular, and anterior axillary line. Each site was infiltrated with the 0.25% bupivacaine with epinephrine. Gallbladder was grasped and retracted cephalad. There was some minor inflammation identified at the infundibulum of the gallbladder. The cystic duct was identified, skeletonized and clipped near the infundibulum of the gallbladder. 2 clips were placed distally. The cystic duct was then divided. The cystic artery was identified, skeletonized, clipped twice proximally once distally and divided. The gallbladder was dissected from the liver bed using the Ethicon Harmonic tom. When the gallbladder was from the liver bed, it was placed in an endoscopic pouch and extracted through the infraumbilical opening. The gallbladder was retrieved and sent to pathology for analysis. Several small stones were palpable within the gallbladder. Liver bed was inspected for adequate hemostasis. The pneumoperitoneum was evacuated and the instrumentation removed. The fascia of the infraumbilical opening was closed with interrupted [id number] of 0 Vicryl using S retractors. The skin edges of the port sites were approximated with subcuticular 4-0 Vicryl. The incisions were sealed with Dermabond dermal adhesive. The patient was taken to PACU in stable condition. Needle, sponge, and instrument counts were correct at the close of the case. Total volume of 0.25% bupivacaine with 1-200,000 epinephrine used during this procedure, 17 mL.
[2017-03-06] MEDS ORDERED: *HR* Promethazine 25 MG/ML VIAL IVP PRN ×2 (10:08→10:42)
[2017-03-06] MEDS ORDERED: Ringers Solution, Lactated 1,000 ML ONE (10:09)
--- NOTE | 2017-03-06 10:35 | Anesthesia Evaluation Post Op ---
Date of Encounter: 03/06/17 Time of Encounter: 10:34 - Vital Signs Vital Signs: Last Vital Signs Temp 97.8 F 03/06/17 10:28 Pulse 75 03/06/17 10:28 Resp 16 03/06/17 10:28 BP 126/74 03/06/17 10:18 Pulse Ox 97 03/06/17 10:28 - Lungs Lungs: Clear Ascult./Percussion - Airway Airway: Non-obstructed - Cardiovascular Regular Rate - Mental Status Mental Status: Alert & Oriented, Answers Appropriately - Pain Pain Scale: 2 - Nausea Vomiting Nausea Vomiting: Not Present - Hydration Hydration: NPO - Discharge PostOp Status: Transfer Patient to floor
[2017-03-06] MEDS ORDERED: Ondansetron 4 MG/2 ML VIAL IVP PRN (10:42)
[2017-03-06] MEDS ORDERED: Naloxone 0.4 MG/ML INJ IVP PRN (10:42)
[2017-03-06] MEDS ORDERED: *HR* OxyCODONE/APAP 5/325 TABLET PO PRN (10:42)
[2017-03-06] MEDS ORDERED: Ringers Solution, Lactated 500 ML IVC ONE (10:42)
[2017-03-06] MEDS ORDERED: Acetaminophen 325 MG TABLET PO PRN (10:42)
[2017-03-06] MEDS: Ringers Solution, Lactated 1,000 ML IVC SCH ×2 (11:00→20:20)
--- NOTE | 2017-03-06 13:28 | Internal Med Progress Note ---
Date of Encounter: 03/06/17 Time of Encounter: 13:15 - Assessment and plan (1) Choledocholithiasis Current Visit: Yes Status: Acute Assessment and plan: patient presented with abdominal pain. US gallbladder showed calculi within the distal CBD, cholelithiasis. MRI abdomen confirmed choledocolithiasis and cholelithiasis. hepatic steatosis. resolved. patient underwent ERCP with removal of CBD stone by sphinterectomy and balloon extraction on 03/04. LFTs are trending down. (2) Gallbladder stone with nonacute cholecystitis Current Visit: Yes Status: Acute Assessment and plan: appreciate surgery input. patient underwent lap mica without complications. continue pain control. (3) Elevated LFTs Current Visit: Yes Status: Acute Assessment and plan: secondary to CBD stone. close monitor. trending down (4) Pneumonia Current Visit: Yes Status: Acute Assessment and plan: CXR shows RUL pneumonia. levaquin for 5 days. Qualifiers: Pneumonia type: due to unspecified organism Laterality: right Lung location: upper lobe of lung Qualified Code(s): J18.1 - Lobar pneumonia, unspecified organism - Subjective Interval history: patient had lap mica this morning. mild abdominal pain. - Constitutional Vitals: Temp Pulse Resp BP Pulse Ox 97.6 F 62 14 102/67 95 03/06/17 10:38 03/06/17 12:28 03/06/17 12:28 03/06/17 12:28 03/06/17 12:28 General appearance: Present: cooperative, A&O X 3, pleasant, no acute distress, answers questions appropriately - Neck Neck exam general surgery: Present: supple, trachea midline. Absent: lymphadenopathy - Respiratory Respiratory exam: Present: CTAB - Cardiovascular Cardiovascular exam: Present: RRR - GI/Abdominal GI/Abdominal exam: Present: distended, normal bowel sounds, soft, tenderness ( diffuse tenderness, expected after lap) - Extremities Exam Extremities exam: Absent: pedal edema - Back Exam Back exam: Absent: CVA tenderness (L), CVA tenderness (R) - Neurological Exam Neurological exam: Present: alert, oriented X3, no focal deficits, strengths equal and symetr throughout. Absent: facial droop, speech deficit Internal Medicine: Result - Labs CBC & Chem 7: 03/06/17 03:45 03/06/17 03:45 Labs: Short CBC 03/06/17 Range/Units 03:45 WBC 7.9 (4.3-11.1) K/mcL Hgb 12.0 (11.5-15.4) g/dL Hct 37.1 (35.3-44.9) % Plt Count 323 (140-400) K/mcL Neutrophils # 4.5 (1.6-8.9) K/mcL BMP 03/06/17 03:45 Sodium 144 Potassium 3.7 Chloride 108 Carbon Dioxide 27 BUN 10 Creatinine 0.93 Glucose 98 Calcium 9.2 Liver Function 03/06/17 Range/Units 03:45 Total Bilirubin 1.3 H (0.2-1.2) mg/dL Direct Bilirubin 0.5 (0.0-0.5) mg/dL AST 67 H (5-34) Units/L ALT 266 H (0-55) Units/L Alkaline Phosphatase 118 (38-126) Units/L Albumin 3.5 (3.5-5.0) g/dL - ABG Interpretation ABG results: PT/INR, D-dimer PT 11.7 Seconds (9.4-12.1) 03/03/17 17:15 D-Dimer 280 ng/mLFEU (0-500) 03/03/17 17:15 Consult Discharge Plan - Plan Instructions: Endoscopic Retrograde Cholangiopancreatography (DC) Referrals: Rajni Mcgraw CNP [Primary Care Provider] - 03/09/17 2:00 pm
[2017-03-06] MEDS: *HR* HYDROcodone/Acet 5/325 mg TABLET PO PRN ×2 (13:45→20:13)
[2017-03-07] MEDS: *HR* HYDROcodone/Acet 5/325 mg TABLET PO PRN ×2 (04:12→08:55)
[2017-03-07 04:30] LABS: Basophils % 0.1 %; Eosinophils % 0.3 %; Hematocrit 34.8 % (35.3-44.9); Hemoglobin 11.4 g/dL (11.5-15.4); Immature Granulocytes % 0.4 % (0-4); Lymphocytes % 19.6 %; Mean Corpuscular HGB Conc 32.8 g/dL (31.6-35.5); Mean Corpuscular Hemoglobin 28.7 pg (28.0-33.3); Mean Corpuscular Volume 87.7 fL (83.0-100.0); Mean Platelet Volume 9.9 fL (9.4-12.4); Monocytes # 0.6 K/mcL (0.0-1.3); Monocytes % 5.3 %; Neutrophils # 7.7 K/mcL (1.6-8.9); Platelet Count 317 K/mcL (140-400); Red Blood Count 3.97 M/mcL (3.82-4.97); Red Cell Distribution Width 12.1 % (11.5-14.5); Segmented Neutrophils % 74.3 %
[2017-03-07 04:49] LABS: Alanine Aminotransferase 161 Units/L (0-55); Alkaline Phosphatase 93 Units/L (38-126); Amylase 43 Units/L (25-125); Aspartate Amino Transferase 40 Units/L (5-34); BUN/Creatinine Ratio 10 (6-26); Bilirubin,Total 0.7 mg/dL (0.2-1.2); Blood Urea Nitrogen 10 mg/dL (7-20); Calcium 8.7 mg/dL (8.6-10.8); Carbon Dioxide 26 mEq/L (19-29); Chloride 106 mEq/L (98-109); Globulin 2.9 g/dL (2.4-3.5); Glucose 111 mg/dL (70-99); Lipase 34 Units/L (8-78); Osmolality,Calculated 292 (280-300); Potassium 4.3 mEq/L (3.5-4.5); Sodium 141 mEq/L (136-145); Total Protein 5.9 g/dL (6.0-8.3); eGFR For African Americans > 60 (> 60); eGFR For Non-African Americans > 60 (> 60)
[2017-03-07 07:20] VITALS: BP 114/72
--- NOTE | 2017-03-07 10:36 | General Surgery Progress Note ---
Date of Encounter: 03/07/17 Time of Encounter: 10:28 Subjective Patient reports: feels better Narrative: General Surgery - POD #1 - patient feeling much improved, minimal infraumbilical port site tenderness. No fevers, chills, nausea or vomiting. Afebrile, 98.3; pulse 72, respirations 16, blood pressure 114/72. SPO2 on room air 97% Lungs: Clear to auscultation, no abdominal pain with deep inspiration Abdomen: Soft with active bowel sounds. Minimal infraumbilical port site tenderness but no erythema or edema. The other port sites are intact and healing well. She describes no BM since Wednesday, 5 days ago. Postop labs: White count 10.4, hemoglobin 11.4 with hematocrit 34.8. Blood diminished H&H likely due to perioperative IV fluids Electrolytes, BUN, creatinine within normal limits Hyperbilirubinemia resolved, 0.7; AST 40, ALT 161 - both improved. Alkaline phosphatase normal at 93.. Amylase lipase normal, 43 and 34 respectively Impression: Postoperative day 1, status post laparoscopic cholecystectomy - doing well History of obstructive jaundice secondary to choledocholithiasis - status post ERCP with choledocholithotomy - hyperbilirubinemia resolved abnormal CXR showing right upper lobe infiltrate - repeat CXR as outpatient. Recommendations May discharge home Regular diet Activity as tolerated, lifting limited to less than 20 pounds Patient may shower, wash incisions with soap and water Follow up my office,03/12/2017, patient to call office in AM to make appointment Tylenol, ibuprofen, Motrin, Advil, Aleve, etc. as needed for pain Prescription for [place] 5/325, #15, one every 6 hours as needed for pain not relieved by [id number] medications Objective Vital Signs - Last 8 Hours Temp Pulse Resp BP Pulse Ox 03/07/17 07:16 98.3 F 72 16 114/72 97 03/07/17 03:50 98.1 F 67 18 102/60 97 Intake and Output 03/06/17 03/07/17 03/07/17 23:59 07:59 15:59 Intake Total 1000 / 1000 1240 / 1240 Balance 1000 / 1000 1240 / 1240 Intake: IV Fluids 1000 / 1000 1000 / 1000 Lactated Ringers 1,000 ML 1000 / 1000 1000 / 1000 @ 75 mls/hr IVC .[id number] DOLORES Rx#:[id number] Oral 240 / 240 Other: Meal Dinner Breakfast Percent of Meal Consumed 95% 100% Weight 91.4 kg Patient Weight 03/07/17 23:59 Weight 91.4 kg - Labs 03/07/17 03:53 03/07/17 03:53 Diabetes panel 03/07/17 Range/Units 03:53 Sodium 141 (136-145) mEq/L Potassium 4.3 (3.5-4.5) mEq/L Chloride 106 (98-109) mEq/L Carbon Dioxide 26 (19-29) mEq/L BUN 10 (7-20) mg/dL Creatinine 0.98 (0.57-1.11) mg/dL Glucose 111 H (70-99) mg/dL Calcium 8.7 (8.6-10.8) mg/dL AST 40 H (5-34) Units/L ALT 161 H (0-55) Units/L Alkaline Phosphatase 93 (38-126) Units/L Albumin 3.0 L (3.5-5.0) g/dL Calcium panel 03/07/17 Range/Units 03:53 Calcium 8.7 (8.6-10.8) mg/dL Albumin 3.0 L (3.5-5.0) g/dL Pituitary panel 03/07/17 Range/Units 03:53 Sodium 141 (136-145) mEq/L Potassium 4.3 (3.5-4.5) mEq/L Chloride 106 (98-109) mEq/L Carbon Dioxide 26 (19-29) mEq/L BUN 10 (7-20) mg/dL Creatinine 0.98 (0.57-1.11) mg/dL Glucose 111 H (70-99) mg/dL Calcium 8.7 (8.6-10.8) mg/dL Adrenal panel 03/07/17 Range/Units 03:53 Sodium 141 (136-145) mEq/L Potassium 4.3 (3.5-4.5) mEq/L Chloride 106 (98-109) mEq/L Carbon Dioxide 26 (19-29) mEq/L BUN 10 (7-20) mg/dL Creatinine 0.98 (0.57-1.11) mg/dL Glucose 111 H (70-99) mg/dL Calcium 8.7 (8.6-10.8) mg/dL Total Bilirubin 0.7 (0.2-1.2) mg/dL AST 40 H (5-34) Units/L ALT 161 H (0-55) Units/L Alkaline Phosphatase 93 (38-126) Units/L Albumin 3.0 L (3.5-5.0) g/dL - VTE Documentation of Mechanical Device: Intermittent pneumatic compression device Consult Discharge Plan - Plan Instructions: Endoscopic Retrograde Cholangiopancreatography (DC) Referrals: Rajni Mcgraw CNP [Primary Care Provider] - 03/09/17 2:00 pm
--- NOTE | 2017-03-07 10:38 | Discharge Summary ---
Outpatient Proc Discharge Plan - Plan Instructions: Endoscopic Retrograde Cholangiopancreatography (DC) Prescriptions: HYDROcodone/Acet 5/325 mg [[place] 5-325 mg] 1 tab PO Q6H PRN #15 tablet PRN Reason: Pain Home Medications: HYDROcodone/Acet 5/325 mg [[place] 5-325 mg] 1 tab PO Q6H PRN #15 tablet 03/07/17 [Rx]
--- NOTE | 2017-03-07 10:46 | Discharge Summary ---
Date of Encounter: 03/07/17 Time of Encounter: 10:41 - Discharge Diagnosis (1) Choledocholithiasis Priority: Primary Status: Acute (2) Gallbladder stone with nonacute cholecystitis Priority: Primary Status: Acute (3) Elevated LFTs Priority: Primary Status: Acute (4) Pneumonia Priority: Primary Status: Acute Qualifiers: Pneumonia type: due to unspecified organism Laterality: right Lung location: upper lobe of lung Qualified Code(s): J18.1 - Lobar pneumonia, unspecified organism - Discharge Medications Prescriptions: HYDROcodone/Acet 5/325 mg [[place] 5-325 mg] 1 tab PO Q6H PRN #15 tablet PRN Reason: Pain Levofloxacin [Levaquin] 500 mg PO DAILY #2 tablet Home Medications: HYDROcodone/Acet 5/325 mg [[place] 5-325 mg] 1 tab PO Q6H PRN #15 tablet 03/07/17 [Rx] Levofloxacin [Levaquin] 500 mg PO DAILY #2 tablet 03/07/17 [Rx] Allergies/Adverse Reactions: Allergies promethazine [From Phenergan] Allergy (Verified 03/03/17 16:36) Hallucinating Date of admission: 03/03/17 20:31 Primary care physician: Rajni Mcgraw CNP Consults: 03/03/17 20:36 Consult to Gastroenterology [CONS] Routine Consulting Provider: Gastroenterology Vidya Reason for Consult: common bile duct stone Call Completed: No 03/04/17 17:04 Consult to Surgery [CONS] Routine Consulting Provider: Surgery Jose Morrison Reason for Consult: acute choledocholithiasis. Call Completed: Yes - Patient Status Disposition: Home, Self-Care Condition: Good Functional capacity at discharge: independent ambulation Overall status at discharge: patient is progressing back to baseline - Discharge Instructions Instructions: Hydrocodone/Acetaminophen (By mouth), Levofloxacin (By mouth), Gallstones (DC), Endoscopic Retrograde Cholangiopancreatography (DC), Pneumonia (DC) Follow Up With: Terrence Morrison MD [Non-Partnered Physician] - (Please call the office to schedule a follow up appt for Wednesday03/12/17. ) Rajni Mcgraw CNP [Primary Care Provider] - 03/09/17 2:00 pm Additional Instructions: Prescription for Levaquin sent to [facility]. May have regular diet Activity as tolerated, limit lifting to less than 20lbs May shower, wash incisions with soap and water daily - Diet and Activity Activity: resume usual activities as tolerated Diet: low fat, low cholesterol Interval History: Patient reports mild diffuse abdominal pain, and dry cough. Hospital course: Ms. Landin is a 21 year old female, 3 months , who presented with sudden onset of epigastric abdominal pain with associated nausea and vomiting. US gallbladder showed calculi within the distal CBD, cholelithiasis. MRI abdomen confirmed choledocolithiasis and cholelithiasis. hepatic steatosis. Her LFTs were elevated due to CBD is stone. Patient underwent ERCP with removal of CBD stone by sphinterectomy and balloon extraction on 03/04. She had a mild elevation of lipase at 93 post-ERCP and continue supportive therapy with IV fluids. Subsequently, she underwent lap mica without complications 03/06. Her liver function tests at discharge were significantly improved. On admission, patient chest x-ray shows right upper lobe pneumonia. This could be secondary to episode of vomiting prior to admission. She was started on IV Levaquin and she will complete a total of 5 days at home. PLAN: Patient with follow-up with Dr. Zamudio next Wednesday. She will follow-up with her primary care physician in one week. She will need a repeat chest x- ray in 4-6 weeks to a stress resolution of right upper lobe infiltrate. - Time Spent with Patient Total time spent providing and/or coordinating discharge services: - Constitutional Vitals: Temp Pulse Resp BP Pulse Ox 98.3 F 72 16 114/72 97 03/07/17 07:16 03/07/17 07:16 03/07/17 07:16 03/07/17 07:16 03/07/17 07:16 General appearance: Present: cooperative, A&O X 3, pleasant, no acute distress, answers questions appropriately - Neck Neck exam general surgery: Present: supple, trachea midline. Absent: lymphadenopathy - Respiratory Respiratory exam: Present: CTAB - Cardiovascular Cardiovascular exam: Present: RRR - GI/Abdominal GI/Abdominal exam: Present: normal bowel sounds, soft. Absent: distended, tenderness - Extremities Exam Extremities exam: Absent: pedal edema - Neurological Exam Neurological exam: Present: alert, oriented X3, no focal deficits, strengths equal and symetr throughout. Absent: facial droop, speech deficit - Skin Skin exam: Absent: rash - VTE Documentation of Mechanical Device: Intermittent pneumatic compression device
[2017-03-07] MEDS ORDERED: Levofloxacin 500 MG/100 ML 500 MG/100 ML BAG IVPB SCH (11:00)
== END 2017-03-07 12:11 | disposition home or self-care (01) ==
LOC: EMEROO 16:18 → 3BNU 16:18 → SUATTDRO 03-04 03:26
PROVIDERS: ADMIT Nurse Practitioner Family; ATTEND Internal Medicine

== ENCOUNTER 2020-12-16 22:51 | Inpatient (IN) ==
[2020-12-16] MEDS ORDERED: Metoclopramide 10 MG/2 ML VIAL IVP PRN (22:59)
[2020-12-16] MEDS ORDERED: Famotidine 20 MG/2 ML VIAL IVP PRN (22:59)
[2020-12-16] MEDS ORDERED: *HR* Nalbuphine 10 MG/ML AMPUL IV PRN (22:59)
[2020-12-16] MEDS ORDERED: Ondansetron 4 MG/2 ML VIAL IVP PRN (22:59)
[2020-12-16] MEDS ORDERED: Naloxone 0.4 MG/ML INJ IVP PRN (22:59)
[2020-12-16] MEDS ORDERED: Ringers Solution, Lactated 1,000 ML IVC SCH (23:00)
[2020-12-16 23:51] LABS: Basophils % 0.2 %; Eosinophils % 0.2 %; Hematocrit 38.3 % (35.3-44.9); Hemoglobin 13.2 g/dL (11.5-15.4); Immature Granulocytes % 0.6 % (0-4); Lymphocytes # 2.4 K/mcL (0.6-4.6); Mean Corpuscular HGB Conc 34.5 g/dL (31.6-35.5); Mean Corpuscular Hemoglobin 31.3 pg (28.0-33.3); Mean Corpuscular Volume 90.8 fL (83.0-100.0); Mean Platelet Volume 10.3 fL (9.4-12.4); Monocytes # 0.7 K/mcL (0.0-1.3); Monocytes % 5.3 %; Neutrophils # 10.7 K/mcL (1.6-8.9); Platelet Count 308 K/mcL (140-400); Red Blood Count 4.22 M/mcL (3.82-4.97); Red Cell Distribution Width 12.7 % (11.5-14.5); Segmented Neutrophils % 76.7 %; White Blood Count 13.9 K/mcL (4.3-11.1)
[2020-12-16 23:59] LABS: Amphetamine Screen,Urine Negative ng/mL (Cutoff=1000); Barbiturate Screen,Urine Negative ng/mL (Cutoff=200); Benzodiazepines Screen,Urine Negative ng/mL (Cutoff=200); Cannabinoid Screen,Urine Negative ng/mL (Cutoff = 50); Cocaine Screen,Urine Negative ng/mL (Cutoff= 300); Opiate Screen,Urine Negative ng/mL (Cutoff=300); Phencyclidine Screen,Urine Negative ng/mL (Cutoff=25)
[2020-12-17] MEDS: miSOPROStoL 25 MCG TABLET PO PRN ×2 (00:32→04:50)
[2020-12-17] MEDS ORDERED: EPHEDrine 50 MG/ML VIAL IVP PRN (02:06)
[2020-12-17] MEDS ORDERED: Epidural Premix (fent/bupiv) 110 ML EP SCH (02:15)
[2020-12-17 04:57] LABS: Adenovirus Not Detected (Not Detect); Bordetella Pertussis Not Detected (Not Detect); Chlamydophila pneumoniae Not Detected (Not Detect); Coronavirus 229E Not Detected (Not Detect); Coronavirus HKU1 Not Detected (Not Detect); Coronavirus NL63 Not Detected (Not Detect); Coronavirus OC43 Not Detected (Not Detect); Human Metapneumovirus Not Detected (Not Detect); Human Rhinovirus/Enterovirus Not Detected (Not Detect); Influenza A Subtype 2009 H1 Not Detected (Not Detect); Influenza B Not Detected (Not Detect); Mycoplasma pneumoniae Not Detected (Not Detect); Parainfluenza Virus 1 Not Detected (Not Detect); Parainfluenza Virus 2 Not Detected (Not Detect); Parainfluenza Virus 3 Not Detected (Not Detect); Parainfluenza Virus 4 Not Detected (Not Detect); Respiratory Syncytial Virus Not Detected (Not Detect); SARS-CoV-2 Not Detected (Not Detect)
[2020-12-17] MEDS ORDERED: Oxytocin 20 units/ LR 1000 mL 20 UNIT/1,000 ML BAG IVC SCH ×2 (10:00→19:01)
[2020-12-17] MEDS ORDERED: *HR* FentaNYL (PF) 100 MCG/2 ML VIAL EP ONE (12:39)
[2020-12-17] MEDS ORDERED: Ropivacaine/PF 0.2% 20 ML VIAL EP ONE (12:39)
[2020-12-17] MEDS ORDERED: *HR* FentaNYL (PF) 100 MCG/2 ML VIAL ONE (12:45)
[2020-12-17] MEDS ORDERED: Ropivacaine/PF 0.2% 20 ML VIAL ONE (12:45)
[2020-12-17] MEDS ORDERED: Rho Immune Globulin 1,500 UNIT SYRINGE IM PRN (19:01)
[2020-12-17] MEDS ORDERED: Measles/Mumps/Rubella Vacc 0.5 ML VIAL SQ PRN (19:01)
[2020-12-18] MEDS: Ibuprofen 600 MG TABLET PO PRN ×2 (04:19→18:32)
[2020-12-18 05:16] LABS: Basophils % 0.1 %; Eosinophils # 0.1 K/mcL (0.0-0.6); Eosinophils % 0.4 %; Hematocrit 34.8 % (35.3-44.9); Hemoglobin 11.7 g/dL (11.5-15.4); Immature Granulocytes % 0.5 % (0-4); Lymphocytes # 2.4 K/mcL (0.6-4.6); Lymphocytes % 15.8 %; Mean Corpuscular HGB Conc 33.6 g/dL (31.6-35.5); Mean Corpuscular Hemoglobin 30.9 pg (28.0-33.3); Mean Corpuscular Volume 91.8 fL (83.0-100.0); Mean Platelet Volume 10.3 fL (9.4-12.4); Monocytes % 6.4 %; Neutrophils # 11.7 K/mcL (1.6-8.9); Platelet Count 257 K/mcL (140-400); Red Blood Count 3.79 M/mcL (3.82-4.97); Red Cell Distribution Width 12.7 % (11.5-14.5); Segmented Neutrophils % 76.8 %; White Blood Count 15.2 K/mcL (4.3-11.1)
[2020-12-18] MEDS: Acetaminophen 325 MG TABLET PO PRN ×2 (09:38→20:59)
[2020-12-18] MEDS: Prenatal Vit/FA 1 EACH TABLET PO SCH (09:38)
[2020-12-19] MEDS: Ibuprofen 600 MG TABLET PO PRN (07:21)
[2020-12-19] MEDS: Prenatal Vit/FA 1 EACH TABLET PO SCH (07:21)
[2020-12-19 08:02] VITALS: BP 140/88
== END 2020-12-19 10:15 | disposition home or self-care (01) | DRG 805 ==
LOC: 1NENULAB 22:51 → 1NENUOBS 12-17 21:15
PROVIDERS: ADMIT Obstetrics & Gynecology; ATTEND Obstetrics & Gynecology